=== PATIENT | male | born 1930 | race Caucasian/White ===

== ENCOUNTER 2019-01-01 09:29 | Inpatient (IN) ==
--- NOTE | 2018-12-23 14:13 | Anesthesiology Consultation ---
Date of Service December 23, 2018 Assessment & Plan Chart Review Chart Review: Pending: Refer to Additional Notes / Consult section and Patient NOT seen in Pre Admission Testing Consults Requested cardiac (please obtain copy of cardiac cath) ASA ASA4 Proposed Anesthesia Anesthesia Type: General Anesthesia Line Insertion: Arterial line History Surgery Operation Date: 01/01/19 11:50 Proposed Procedures p Robotic Right Video Assisted Thoracoscopy with Right Upper Love Wedge Resection, Possible Right Upper Lobectomy with Mediastinal Lymphadenectomy - Davion Hudson MD, FACS Height/Weight Height: 5 ft 11 in Weight: 89.358 kg Allergies Allergy/AdvReac Type Severity Reaction Status Date / Time No Known Allergies Allergy Verified 12/20/18 14:07 Medications Home Medications Medication Instructions Recorded Confirmed Last Taken amlodipine 2.5 mg tablet 2.5 mg PO QAM 11/27/18 12/20/18 Unknown atorvastatin 10 mg tablet 10 mg PO HS 11/27/18 12/20/18 Unknown cyanocobalamin (vitamin B-12) 1,000 mcg PO QPM 11/27/18 12/20/18 Unknown 1,000 mcg capsule folic acid 1 mg tablet 1 mg PO QPM 11/27/18 12/20/18 Unknown omeprazole 20 mg capsule,delayed 20 mg PO QAM 11/27/18 12/20/18 Unknown release apixaban [Eliquis] 5 mg PO BID 12/20/18 12/20/18 Unknown fluticasone propion-salmeterol 1 inh INHALATION BID 12/20/18 12/20/18 Unknown [Advair Diskus] hydrocodone-acetaminophen 1 tab PO Q6H PRN 12/20/18 12/20/18 Unknown lisinopril 10 mg PO QAM 12/20/18 12/20/18 Unknown magnesium 250 mg PO QPM 12/20/18 12/20/18 Unknown methotrexate sodium 20 mg PO WK 12/20/18 12/20/18 Unknown Past Medical History Medical History Arthritis COPD (chronic obstructive pulmonary disease) Carpal tunnel syndrome of right wrist Hearing deficit Hyperlipemia Hypertension Pacemaker HX BRADYCARDIA - 3-5 YR AGO - [facility] (PT NOT SURE) Poor historian Exercise / Class Metabolic Activity III < 4 Walking/Shop/Light housework Past Family History Family History Daughter Hypertension Past Surgical History Surgical History History of knee replacement (~2009) RIGHT AND LEFT Hx of cataract surgery BOTH EYES Past Anesthesia History No Hx of Anesthesia Complications and No Family Hx of Anesthesia Complications History of PONV No Hx of PONV and No Hx of Motion Sickness Social History Smoking Status: Former smoker Do You Dip or Chew Tobacco: No Smoking End Date: 27 YR Hx Alcohol Use: No Hx Substance Use: No Testing Laboratory Results WBC: 6.1 Hc.7 Hct: 42.1 PLATELETS: 186 SODIUM: 140 POTASSIUM: 4.0 CHLORIDE: 106 CO2: 23 BUN: 24 CREATININE: 1.1 GLUCOSE: 93 PT: PTT: INR: UA: TYPE AND SCREEN: Electrocardiogram Date: 12/16/18 Findings: + pertinent finding (atrial - paced rhythm at 70;w/ prolonged AV conductionw/occasional pvc's and pac's;RBBB) Echocardiogram Date: 02/17/11 EF: 55 LV Function: normal Valvular Disease: + no significant valvular disease mild elevation of right sided heart pressures Stress Test Date: 02/16/11 Type: nuclear Findings: + WNL Resting RWMA: + none Valvular Disease: no significant valvular disease
[~2019-01-01 09:29] MED LIST: LR 15ML/HR IV SCH
[2019-01-01 10:11] LABS: Basophils # (auto) 0.03 K/uL (0-0.2); Basophils % (auto) 0.4 %; Eosinophils # (auto) 0.08 K/uL (0-0.5); Eosinophils % (auto) 1.1 %; Hematocrit (blood only) 41.5 % (42-52); Hemoglobin 13.5 g/dL (14.0-18.0); Immature Granulocytes # (auto) 0.02 K/uL (0.00-0.02); Immature Granulocytes % (auto) 0.3 %; Lymphocytes # (auto) 0.74 K/uL (1.2-3.4); Lymphocytes % (auto) 9.8 %; Mean Corpuscular Hemoglobin 32.3 pg (25-34); Mean Corpuscular Volume 99.3 fL (80-100); Mean Platelet Volume 9.4 fL (7.4-10.4); Monocytes # (auto) 0.74 K/uL (0.11-0.59); Monocytes % (auto) 9.8 %; Neutrophils # (auto) 5.93 K/uL (1.4-6.5); Neutrophils % (auto) 78.6 %; Platelet Count 202 K/uL (130-400); RDW Standard Deviation 53.9 fL (36.4-46.3); Red Blood Count 4.18 M/uL (4.7-6.1); White Blood Count 7.54 K/uL (4.8-10.8)
[2019-01-01 10:27] LABS: BUN Creatinine Ratio 21.2 (10-20); Calcium 9.1 mg/dl (8.5-10.1); Creatinine Clr Calc Pharmacy 44.7 ml/min; Est GFR (African American) 60.2; Est GFR (Non-African American) 51.9; Potassium 3.6 mmol/L (3.5-5.1)
--- NOTE | 2019-01-01 10:33 | History & Physical Bridge Note ---
Date of Service January 01, 2019 History & Physical Bridge Note I have examined the patient, reviewed the History & Physical and in the interval since the performance of the History & Physical I have noted the following changes of clinical significance: no changes noted
[2019-01-01 10:39] LABS: Mean Corpuscular Hgb Conc 32.5 g/dL (32-36)
[2019-01-01] MEDS ORDERED: fentaNYL citrate 100 MCG/2 ML VIAL ONE ×2 (10:41→13:41)
[2019-01-01] MEDS ORDERED: BUPIVACAINE 0.5 % 5 MG/1 ML MPF 30ML VIAL ONE (10:50)
[2019-01-01] MEDS ORDERED: SODIUM CHLORIDE 0.9% PF 50 ML VIAL ONE (10:51)
[2019-01-01] MEDS ORDERED: BUPIVACAINE LIPOSOME 1.3% 266 MG/20 ML VIAL ONE (10:51)
[2019-01-01] MEDS ORDERED: ACETAMINOPHEN 1000 MG/100 ML IV IV ONE (10:58)
[2019-01-01] MEDS ORDERED: fentaNYL citrate 100 MCG/2 ML VIAL IV PRN (11:21)
[2019-01-01] MEDS ORDERED: ATROPINE SULFATE 0.1 MG/ML 10ML SYR IV PRN (11:21)
[2019-01-01] MEDS ORDERED: ePHEDrine sulfate 50 MG/ML AMP IV PRN (11:21)
[2019-01-01] MEDS ORDERED: ONDANSETRON INJ 2 MG/ML 2 ML VIAL IV PRN ×2 (11:21→17:27)
[2019-01-01] MEDS ORDERED: LIDOCAINE HCL 2% 2 ML VIAL/AMP(20MG/ML) INFIL ONE (12:06)
[2019-01-01] MEDS ORDERED: PROPOFOL IV EMULSION 10 MG/ML 20 ML VIAL IV ONE (12:06)
[2019-01-01] MEDS ORDERED: DEXAMETHASONE SOD INJ 4 MG/ML VIAL ONE (12:07)
[2019-01-01] MEDS ORDERED: ROCURONIUM BROMIDE 10 MG/ML 5 ML VIAL ONE (12:07)
[2019-01-01] MEDS ORDERED: ONDANSETRON INJ 2 MG/ML 2 ML VIAL ONE (12:07)
[2019-01-01] MEDS ORDERED: ePHEDrine sulfate 50 MG/ML SYR ONE (12:07)
[2019-01-01] MEDS ORDERED: SURGICEL ABSORB HEMOSTAT 2IN X 14IN TOP ONE (13:38)
--- NOTE | 2019-01-01 14:59 | Operative Report ---
PG Post Operative Report Pre & Post Diagnosis Operation Date: 01/01/19 11:40 Pre-Op Diagnosis: Right Lung Nodule Post-Op Diagnosis: Squamous cell carcinoma RUL I identified the patient and participated in the time-out.: Yes Procedure Operation Date: 01/01/19 11:40 Actual Procedures p Robotic Right Video Assisted Thoracoscopy with Right Upper Lobe Wedge Resection, Right Upper Lobectomy with Mediastinal Lymphadenectomy(Right) - Davion Hudson MD, FACS Surgeon Davion Hudson MD, FACS Electrical Transmission Engineer Cindy SCOTT Estimated Blood Loss 50 Findings Consistent with Post-Op Diagnosis Specimens Right upper lobe wedge X 2. Right upper lobe Lymph Nodes Drains 24 fr chest tube Anesthesia Type General Complications none Disposition Accompanied Patient To Recovery: No Disposition: Recovery Room Indications Hypermetabolic RUL nodule Description of Procedure This 88-year-old ex-smoker was found to have a mass in his right upper lobe which is hypermetabolic. He underwent a work-up and we felt he was a candidate for resection despite his advanced age. On 01/01/2019 patient brought the operating room and underwent a wedge resection of the right upper lobe mass. This turned out to be a squamous cell carcinoma. We proceeded with an uneventful right upper lobectomy with mediastinal lymphadenectomy. He tolerated it well was extubated in the room. Procedure: The patient was brought to the operating room and laid in the supine position. General anesthesia was induced and endotracheal intubation was performed with a double-lumen tube. Patient was placed in the left lateral decubitus position and his right chest was prepped and draped in the usual sterile fashion. After appropriate timeout of been called and prophylactic antibiotics given, a 5 mm port was placed in the eighth interspace just anterior to the midaxillary line. There were some adhesions to the right upper lobe but in general there well-developed fissures and very little in the way of adhesions. 8 mm ports were placed anterior-posterior in the same interspace and a 5 mm port was placed more posterior. 15 mm assistance port was placed just above the diaphragm anterior between the camera port in the anterior port although with several interspaces below. Camera port was switched over to a 12 mm port. Carbon dioxide was insufflated. The robot was docked. We took down the adhesions with cautery. We then grasped the right upper lobe apex and wedged this out using Endo MAVERICK stapler. Frozen section did not show evidence of a mass although I thought that I felt one. I then took more with Endo MAVERICK staplers. The mass was found this time and this was a squamous cell carcinoma on frozen read by Dr. Jamir Mccarty. While waiting for the frozen we have taken lymph nodes. Did not really see much in the level 8 or 9 area however there is a large packet of level 7 nodes which I removed. I then dissected out the level 11/23/2011 and the level 2 and 4. The we did this it exposed the the mediastinum quite nicely. We especially dissected out the right upper lobe bronchus. Frozen section came back as a ramus cell carcinoma would be fired an Endo MAVERICK stapler across the proximal right upper lobe bronchus. This opened up things quite nicely. We then retracted the lobe posteriorly and dissected off the anterior mediastinum. We were easily able to separate the artery from the vein here and divided the superior pulmonary vein just distal to the confluence with the middle lobe vein. This freed up the artery quite easily and we fired an Endo MAVERICK stapler across the A1 and 2 segments and then the A3 segment. We then completed the fissure anteriorly and posteriorly using Endo MAVERICK staplers. A Endobag was used to remove the lobe. We closed the patient but noted air leak with a bit larger than we would have liked. We inspected our staple lines and the bronchus really did not see any air leak however there was a defect noted in the lower lobe and we stapled this off. Air leak was greatly decreased. Beginning the case we mixed 266 mg of liposomal bupivacaine and 20 cc of solution with 30 cc of 0.5% bupivicaine and 250 cc of normal saline. We then injected into each of the port sites before making the incision. We also performed an intrathoracic intercostal block from the second to the 11th rib with the solution. Frozen section came back as being negative for carcinoma of the bronchial margin a 24 Kazakh chest tube was placed to 1 of the ports were towards the apex and sutured in place heavy silk suture. The assistance port had to be opened a bit in order to remove the Endobag in the low. This was closed with 0 Vicryl in running continuous fashion for the muscle layers. The larger camera port was also closed with 0 Vicryl in a [id number] fashion for the muscle layers. 4 Monocryl was used in running septic fashion approximate the wound edges. Patient tolerated the procedure quite well was extubated in the room with negligible blood loss. Transported to the postprocedure care unit in stable condition. I attest to the content of the Intraoperative Record and any orders documented therein. Any exceptions are noted below.
[2019-01-01] MEDS ORDERED: METOCLOPRAMIDE HCL INJ 5 MG/ML 2 ML VIAL IV ONE (15:25)
--- NOTE | 2019-01-01 15:48 | XRay Report ---
SINGLE VIEW CHEST CLINICAL HISTORY: Status post right upper lobe resection FINDINGS: An AP, portable, upright chest radiograph is correlated with chest CT dated 01/28/2018. The examination is degraded by portable technique and patient rotation. A 3-lead cardiac pacemaker is un changed in position and partially obscures the left upper chest. The heart is enlarged noting atheros clerotic calcification of the thoracic aorta. The pulmonary vasculature is noncongested. Emphysema an d chronic interstitial thickening is similar to previous. There is postoperative change and volume lo ss consistent with right upper lobe resection. A chest tube projects over the right mid chest. There is a large right pneumothorax. Trace pleural fluid is seen at the right lung base. Platelike atelecta sis is noted at the left lung base. The skeletal structures are osteopenic. The bony thorax is grossl y intact. Subcutaneous emphysema is noted along the right chest wall and in the right lower neck. IMPRESSION: 1. Emphysema and postoperative change from right upper lobe resection. 2. A right-sided chest tube is in place and there is a large right pneumothorax. 3. Cardiomegaly and cardiac pacemaker without radiographic evidence of congestive failure. 4. Left lung appears clear. Electronically signed by: Arvin Salazar M.D. 01/01/2019 3:47 PM
--- NOTE | 2019-01-01 16:33 | Anesthesiology Progress Note ---
Date of Service January 01, 2019 Anesthesia Post Procedure Vital Signs Vital Signs: Temp Pulse Pulse Resp BP Pulse Ox 01/01/19 16:25 63 17 142/85 H 100 01/01/19 16:15 62 16 149/87 H 98 01/01/19 16:05 63 16 159/91 H 99 01/01/19 15:55 61 17 151/92 H 100 01/01/19 15:45 60 15 152/88 H 100 01/01/19 15:35 60 17 157/84 H 100 01/01/19 15:25 36.0 C L 60 18 155/85 H 100 01/01/19 10:18 36.6 C 63 20 153/96 H 97 01/01/19 09:45 36.6 C Pain Intensity Left Chest: Pain Intensity: 0 Transfer of Care Handoff Completed per policy Notes Mental Status: alert / awake / arousable Patient Amnestic to Procedure: Yes Nausea / Vomiting: adequately controlled Pain: adequately controlled Airway Patency, RR, SpO2: stable & adequate BP & HR: stable & adequate Hydration State: stable & adequate Anesthetic Complications: no major complications apparent
[2019-01-01] MEDS: D5W AND 1/2NSS 1,000 ML IV SCH (17:48)
[2019-01-01] MEDS: METOCLOPRAMIDE HCL INJ 5 MG/ML 2 ML VIAL IV SCH (18:33)
[2019-01-01] MEDS: ACETAMINOPHEN 1,000 MG/100 ML VIAL IV SCH (18:33)
[2019-01-01] MEDS: OXYCODONE HCL IR 5 MG TAB (IMMEDIATE RELEASE) PO PRN (19:39)
[2019-01-01] MEDS: MoRPHine SULFATE 2 MG/ML CARP IV PRN (20:55)
[2019-01-01] MEDS: MAGNESIUM OXIDE 400 MG TAB PO SCH (20:56)
[2019-01-01] MEDS: ATORVASTATIN 10 MG TAB PO SCH (20:56)
[2019-01-01] MEDS: DOCUSATE SODIUM 100 MG CAP PO SCH (20:56)
[2019-01-01] MEDS: FLUTICASONE/SALMETEROL 250/50 (ADVAIR) 14 PUFF/1 INHALER INH SCH (21:02)
[2019-01-02] MEDS: ACETAMINOPHEN 1,000 MG/100 ML VIAL IV SCH ×2 (01:40→10:50)
[2019-01-02] MEDS: METOCLOPRAMIDE HCL INJ 5 MG/ML 2 ML VIAL IV SCH ×2 (01:41→10:45)
[2019-01-02] MEDS: D5W AND 1/2NSS 1,000 ML IV SCH (03:57)
[2019-01-02] MEDS: OXYCODONE HCL IR 5 MG TAB (IMMEDIATE RELEASE) PO PRN ×2 (05:18→13:45)
[2019-01-02] MEDS ORDERED: CLINDAMYCIN PHOS 900 MG/6 ML VIAL IV SCH (06:00)
[2019-01-02 06:14] LABS: Hematocrit (blood only) 37.9 % (42-52); Hemoglobin 12.6 g/dL (14.0-18.0); Immature Granulocytes # (auto) 0.03 K/uL (0.00-0.02); Immature Granulocytes % (auto) 0.2 %; Lymphocytes % (auto) 4.4 %; Mean Corpuscular Hgb Conc 33.2 g/dL (32-36); Mean Corpuscular Volume 99.2 fL (80-100); Monocytes # (auto) 1.08 K/uL (0.11-0.59); Monocytes % (auto) 7.9 %; Neutrophils # (auto) 11.94 K/uL (1.4-6.5); Neutrophils % (auto) 87.5 %; Platelet Count 179 K/uL (130-400); RDW Coefficient of Variation 14.9 % (11.5-14.5); RDW Standard Deviation 53.1 fL (36.4-46.3); Red Blood Count 3.82 M/uL (4.7-6.1); White Blood Count 13.65 K/uL (4.8-10.8)
[2019-01-02 06:32] LABS: BUN Creatinine Ratio 18.8 (10-20); Calcium 8.1 mg/dl (8.5-10.1); Est GFR (African American) 51.1; Est GFR (Non-African American) 44.1; Potassium 4.1 mmol/L (3.5-5.1)
--- NOTE | 2019-01-02 07:56 | XRay Report ---
XR chest 1V portable HISTORY: Postop. Right upper lobectomy. COMPARISON: Chest 01/01/2019. FINDINGS: Decrease in size in the moderate to large right pneumothorax. This demonstrates a maximal a pical pleural gap of 6 cm. Right-sided chest tube terminates in the right mid hemithorax. This is not significant change in position. The left lung is clear. The heart is mildly enlarged. Left-sided pac emaker is noted. Small amount of right chest wall subcutaneous emphysema. IMPRESSION: 1. Slight decrease in size in the moderate to large right pneumothorax. 2. Right-sided chest tube remains in place. Electronically signed by: J Luis Michaud M.D. 01/02/2019 7:55 AM
[2019-01-02] MEDS ORDERED: ENOXAPARIN INJ 40 MG/0.4 ML SYR SQ SCH (09:00)
[2019-01-02] MEDS: FLUTICASONE/SALMETEROL 250/50 (ADVAIR) 14 PUFF/1 INHALER INH SCH ×2 (09:36→21:16)
[2019-01-02] MEDS: AMLODIPINE BESYLATE 5 MG TAB PO SCH (09:37)
[2019-01-02] MEDS: PANTOprazole 40 MG TAB PO SCH (09:37)
[2019-01-02] MEDS: LISINOPRIL 10 MG TAB PO SCH (09:37)
[2019-01-02] MEDS: DOCUSATE SODIUM 100 MG CAP PO SCH ×2 (09:40→21:17)
--- NOTE | 2019-01-02 10:59 | Anesthesiology Progress Note ---
Date of Service January 02, 2019 Anesthesia Post Procedure Vital Signs Vital Signs: Temp Pulse Pulse Resp BP BP Pulse Ox 01/02/19 07:41 36.7 C 60 18 139/83 95 01/02/19 06:37 91 01/02/19 04:20 36.5 C 61 18 128/77 94 01/02/19 02:27 36.4 C L 59 L 18 121/74 95 01/02/19 00:27 01/02/19 00:25 36.4 C L 60 18 125/75 94 01/02/19 00:04 01/01/19 23:00 89 L 01/01/19 22:20 36.3 C L 60 16 110/72 99 01/01/19 20:27 36.3 C L 63 16 130/82 100 01/01/19 19:24 36.7 C 60 17 144/84 H 98 01/01/19 18:27 36.7 C 62 18 127/75 96 01/01/19 17:20 36.5 C 59 L 16 143/85 H 99 01/01/19 16:55 63 20 139/82 98 01/01/19 16:45 36.2 C L 66 16 141/86 H 99 01/01/19 16:35 62 17 146/89 H 98 01/01/19 16:25 63 17 142/85 H 100 01/01/19 16:15 62 16 149/87 H 98 01/01/19 16:05 63 16 159/91 H 99 01/01/19 15:55 61 17 151/92 H 100 01/01/19 15:45 60 15 152/88 H 100 01/01/19 15:35 60 17 157/84 H 100 01/01/19 15:25 36.0 C L 60 18 155/85 H 100 Pulse Ox 01/02/19 07:41 01/02/19 06:37 01/02/19 04:20 01/02/19 02:27 94 01/02/19 00:27 93 01/02/19 00:25 01/02/19 00:04 91 01/01/19 23:00 01/01/19 22:20 01/01/19 20:27 01/01/19 19:24 01/01/19 18:27 96 01/01/19 17:20 01/01/19 16:55 01/01/19 16:45 01/01/19 16:35 01/01/19 16:25 01/01/19 16:15 01/01/19 16:05 01/01/19 15:55 01/01/19 15:45 01/01/19 15:35 01/01/19 15:25 Pain Intensity Left Chest: Pain Intensity: 0 Notes Mental Status: alert / awake / arousable and participated in evaluation Nausea / Vomiting: adequately controlled Pain: adequately controlled Airway Patency, RR, SpO2: stable & adequate BP & HR: stable & adequate Hydration State: stable & adequate Anesthetic Complications: no major complications apparent
[2019-01-02] MEDS ORDERED: TAMSULOSIN HCL 0.4 MG CAP PO STA (12:26)
--- NOTE | 2019-01-02 15:51 | Surgery Progress Note ---
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 Not pleased with the Aerolate but it is small enough that I think it will stop. His right lung should continue to expand. He is ambulating in the hallway on room air. He really looks good. This appears to be an early stage squamous cell carcinoma of the right upper lobe with clean resection margins. Present on Admission?: No Subjective Mr. Yo sitting up having just finished his breakfast. He is on room air. He is ambulating in the hallway. Complaining of some discomfort with the chest tube. He said some serous drainage but still has an air leak which is mild to moderate. Otherwise he looks great. He sounds good auscultation. Chest x-ray shows a decrease in the right-sided pneumothorax. He can better aeration of his right lung base. Results & Data Vital Signs (Past 12 Hours) Vital Signs Temp Pulse Resp BP BP Pulse Ox 01/02/19 15:20 36.4 C L 63 18 131/73 95 01/02/19 11:08 36.3 C L 58 L 16 111/68 95 01/02/19 07:41 36.7 C 60 18 139/83 95 01/02/19 06:37 91 01/02/19 04:20 36.5 C 61 18 128/77 94 PG Care Time/CCT Total # of Minutes Spent Total Time Spent with Patient: Total time spent is greater than 50% in coordination of care (as documented) at patient's floor/unit and/or counseling patient:
[2019-01-02] MEDS: MoRPHine SULFATE 2 MG/ML CARP IV PRN (17:21)
[2019-01-02] MEDS: ACETAMINOPHEN 325 MG TAB PO SCH ×2 (17:53→23:27)
[2019-01-02] MEDS ORDERED: AMIODARONE IV BOLUS / DRIP IV STA (20:14)
[2019-01-02] MEDS ORDERED: AMIODARONE / D5W 150 MG/100 ML BAG IV ONE (20:30)
[2019-01-02] MEDS ORDERED: AMIODARONE / D5W 360 MG/200 ML BAG IV SCH (20:40)
[2019-01-02] MEDS: ATORVASTATIN 10 MG TAB PO SCH (21:17)
[2019-01-02] MEDS: MAGNESIUM OXIDE 400 MG TAB PO SCH (21:17)
[2019-01-02] MEDS: APIXABAN 5 MG TABLET PO SCH (22:16)
[2019-01-02] MEDS: TAMSULOSIN HCL 0.4 MG CAP PO SCH (22:39)
[2019-01-03] MEDS ORDERED: AMIODARONE / D5W 360 MG/200 ML BAG IV SCH (02:40)
[2019-01-03] MEDS: OXYCODONE HCL IR 5 MG TAB (IMMEDIATE RELEASE) PO PRN ×2 (04:53→19:49)
[2019-01-03] MEDS: ACETAMINOPHEN 325 MG TAB PO SCH ×3 (05:03→17:18)
--- NOTE | 2019-01-03 07:08 | XRay Report ---
XR chest 1V portable CLINICAL HISTORY: lung resection postoperative COMPARISON STUDY: 01/02/2019 FINDINGS: Diminished in volume of a right sided pneumothorax. Pleural separation is diminished to les s than 1 cm. Right basilar drainage catheter is similar. There is a trace pleural fluid right lateral costophrenic angle. Subcutaneous emphysematous changes are stable. Left lung remains clear. IMPRESSION: Improved postoperative change right hemithorax with no significant residual pneumothorax at the current time. The above report was generated using voice recognition software. It may contain grammatical, syntax or spelling errors. Electronically signed by: Paddy Alvarze M.D. 01/03/2019 7:06 AM
[2019-01-03] MEDS: FLUTICASONE/SALMETEROL 250/50 (ADVAIR) 14 PUFF/1 INHALER INH SCH ×2 (08:12→19:42)
[2019-01-03] MEDS: PANTOprazole 40 MG TAB PO SCH (08:13)
[2019-01-03] MEDS: DOCUSATE SODIUM 100 MG CAP PO SCH ×2 (08:13→19:46)
[2019-01-03] MEDS: APIXABAN 5 MG TABLET PO SCH ×2 (08:13→19:44)
[2019-01-03] MEDS: AMLODIPINE BESYLATE 5 MG TAB PO SCH (10:33)
[2019-01-03] MEDS: LISINOPRIL 10 MG TAB PO SCH (10:33)
--- NOTE | 2019-01-03 12:07 | Surgery Progress Note ---
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 is s/p RUL on 01/01/19 -CXR today shows previously noted pneumothorax has resolved -CT has noted air leak and due to drainage (1700 cc last shift) will remain in place -encourage coughing, deep breathing, use of IS -ambulation has been encouraged (2) Atrial fibrillation and flutter: -this was noted last night -pt. noted to have hypotension, but is otherwise asymptomatic -amiodarone bolus given and drip started on 01/02/19 -he remains in afib with RVR -he is anticoagulated with Eliquis -cardiology consulted: -case discussed with Dr. Lowe -awaiting recommendations Subjective Pt. state he feels well. He specifically denies CP or SOB. No palpitations. He notes that when he first gets OOB he has some slight lightheadedness but this resolved within a few minutes. He is tolerating oral intake without N/V. Denies difficulty voiding. He has ambulated in hallway. Discussed withh RN--main issue is a-fib with RVR, but otherwise pt. doing well. Physical Exam Constitutional: well developed and well nourished; no acute distress ENMT: Ears: + hearing impairment (need to speak to pt. in loud voice for him to hear) Neck: trachea midline Respiratory: normal respiratory effort; no respiratory distress and no labored breathing BS with slight decrease at right base Cardiovascular: Rate/Rhythm: + tachycardic and + irregularly irregular Gastrointestinal (Abdomen): Percussion/Palpation: abdomen soft; abdomen nontender Musculoskeletal: no calf tenderness Neurologic: -pt. follows commands; he moves all extremities without noted focal deficits Results & Data Vital Signs (Past 12 Hours) Vital Signs Temp Pulse Pulse Resp BP BP Pulse Ox 01/03/19 11:10 36.5 C 119 H 18 113/70 95 01/03/19 07:37 36.6 C 115 H 18 82/57 L 92 01/03/19 03:10 36.2 C L 95 H 18 86/56 L 94 PG Care Time/CCT Total # of Minutes Spent Total Time Spent with Patient: Total time spent is greater than 50% in coordination of care (as documented) at patient's floor/unit and/or counseling patient:
--- NOTE | 2019-01-03 13:54 | Cardiology Consultation ---
Date of Consultation January 03, 2019 Assessment & Plan (1) Atrial fibrillation and flutter: Although I do not have much in way of records I believe he has had a long history of atrial fibrillation and that is why he was on anticoagulation, which he should be. He does not appear to be on any AV carlito blocking medications, perhaps that is an error in our medication list since he does not really know his medications. We do not have to worry about bradycardia since he has a pacemaker. He has been on amiodarone now since yesterday and that has done little for heart rate and has not converted his rhythm. I am going to discontinue the amiodarone and start AV carlito blocking medications . I am going to start with intravenous medications to make sure we can get heart rate control but I am also going to add oral agents. Since I do not know what he is on at home I am going to use diltiazem and beta-blockade. (2) Pacemaker: He has a pacemaker in place, I do not know what that device is. We could probably find out if we need to interrogate it but there is no reason to think it is not working therefore I am not going to pursue it at the moment unless there is an issue with the device. (3) Anticoagulant long-term use: He should be on an anticoagulant for his atrial fibrillation, I assume that he is on Eliquis for that not for some other reason. In any case he is back on it and it should be effective for stroke prevention for his arrhythmia. History of Present Illness Reason for Consultation: Atrial fibrillation with rapid ventricular response Attending Physician: Davion Hudson MD, FACS History of Present Illness This is an 88-year-old male who [place] 100 miles from here and is here for a right lung procedure done yesterday. He was observed to be in atrial fibrillation with a rapid heart rate. We do not have records regarding his arrhythmia that I have seen, and he knows very little about it. He does have a pacemaker in place, he also takes Eliquis which he thinks he has been taking for about a year but he does not know why. He did not really recognize the name atrial fibrillation but that is probably why he was on it. I suspect therefore that he had some form of tachybradycardia syndrome and therefore has a pacemaker and probably had atrial fibrillation in the past. Here he is not on any AV carlito blocking medications. He was started on intravenous amiodarone but that has done little to control the heart rate and he remains in atrial fibrillation. He is back on Eliquis postoperatively (he held it for several days preoperatively). He seems unaware of the rhythm, he does not feel it even though the rate is somewhat fast (around 120). Overall he feels fairly well and he is sitting in a chair next to his bed. Allergies Allergy/AdvReac Type Severity Reaction Status Date / Time No Known Allergies Allergy Verified 12/20/18 14:07 Home Medications Home Medications Medication Instructions Recorded Confirmed Type amlodipine 2.5 mg tablet 2.5 mg PO QAM 11/27/18 01/01/19 History atorvastatin 10 mg tablet 10 mg PO HS 11/27/18 01/01/19 History cyanocobalamin (vitamin B-12) 1,000 mcg PO QPM 11/27/18 01/01/19 History 1,000 mcg capsule folic acid 1 mg tablet 1 mg PO QPM 11/27/18 01/01/19 History omeprazole 20 mg capsule,delayed 20 mg PO QAM 11/27/18 12/20/18 History release apixaban [Eliquis] 5 mg PO BID 12/20/18 01/01/19 History fluticasone propion-salmeterol 1 inh INHALATION BID 12/20/18 01/01/19 History [Advair Diskus] lisinopril 10 mg PO QAM 12/20/18 01/01/19 History magnesium 250 mg PO QPM 12/20/18 12/20/18 History methotrexate sodium 20 mg PO WK 12/20/18 12/20/18 History Patient History Medical History Arthritis Carpal tunnel syndrome of right wrist COPD (chronic obstructive pulmonary disease) Hearing deficit Hyperlipemia Hypertension Pacemaker HX BRADYCARDIA - 3-5 YR AGO - [facility] (PT NOT SURE) Poor historian Surgical History History of knee replacement (~2009) RIGHT AND LEFT Hx of cataract surgery BOTH EYES Family History Daughter Hypertension Social History Preferred Language: Turkmen Communication Ability: Effective Hearing Ability: Hard of Hearing Beliefs That Will Affect Care: None marital status: / Current Living Situation: Alone current occupational status: retired Feels Safe at Home: Yes Smoking Status: Former smoker Do You Dip or Chew Tobacco: No ; Smoking End Date: 27 YR ; Number of Years Since Quit: 27 ; Second Hand Exposure: No ; Hx Alcohol Use: No Hx Substance Use: No Review of Systems Review of Systems: All systems reviewed & are unremarkable except as noted in HPI & below Results & Data Vital Signs (Past 12 Hours) Vital Signs Temp Pulse Pulse Resp BP BP Pulse Ox 01/03/19 11:10 36.5 C 119 H 18 113/70 95 01/03/19 07:37 36.6 C 115 H 18 82/57 L 92 01/03/19 03:10 36.2 C L 95 H 18 86/56 L 94 Diagnostic Findings An electrocardiogram done yesterday demonstrates atrial fibrillation at a rate of 130 bpm, a right bundle branch block pattern. Telemetry: Atrial fibrillation since yesterday, heart rate typically 120, as high as 150 for brief times. PG Care Time/CCT Total # of Minutes Spent Total Time Spent with Patient: Total time spent is greater than 50% in coordination of care (as documented) at patient's floor/unit and/or counseling patient:
[2019-01-03] MEDS ORDERED: dilTIAZem HCl 5 MG/ML 5 ML VIAL IV STA (14:04)
[2019-01-03] MEDS ORDERED: METOPROLOL TARTRATE 1 MG/ML VIAL IV STA (14:05)
[2019-01-03] MEDS: TAMSULOSIN HCL 0.4 MG CAP PO SCH (19:44)
[2019-01-03] MEDS: METOPROLOL TARTRATE 25 MG TAB PO SCH (19:44)
[2019-01-03] MEDS: ATORVASTATIN 10 MG TAB PO SCH (19:45)
[2019-01-03] MEDS: MAGNESIUM OXIDE 400 MG TAB PO SCH (19:45)
[2019-01-04] MEDS: ACETAMINOPHEN 325 MG TAB PO SCH ×5 (01:02→23:14)
[2019-01-04 06:49] LABS: Creatinine Clr Calc Pharmacy 18.7 ml/min; Est GFR (Non-African American) 18.1
--- NOTE | 2019-01-04 06:56 | XRay Report ---
SINGLE VIEW CHEST CLINICAL HISTORY: Status post right upper lobe resection. Pneumothorax. FINDINGS: An AP, portable, upright chest radiograph is compared to study dated 01/03/2019 and correla tae with chest CT dated 01/28/2018. The examination is degraded by portable technique and patient rot ation. A 3-lead cardiac pacemaker is unchanged in position and partially obscures the left upper ches t. The heart is enlarged noting atherosclerotic calcification of the thoracic aorta. The pulmonary va sculature is noncongested. Emphysema and chronic interstitial thickening is similar to previous. Ther e is postoperative change and volume loss consistent with right upper lobe resection. A right-sided c hest tube is unchanged in position. There is a small residual right apical pneumothorax. Trace pleura l fluid is seen at the right lung base. The skeletal structures are osteopenic. The bony thorax is gr ossly intact. Subcutaneous emphysema is noted along the right chest wall and in the right lower neck. IMPRESSION: 1. Emphysema and postoperative change from right upper lobe resection. 2. A right-sided chest tube is in place and there is a small persistent right apical pneumothorax. 3. Cardiomegaly and cardiac pacemaker without radiographic evidence of congestive failure. 4. The left lung appears clear. Electronically signed by: Arvin Salazar M.D. 01/04/2019 6:54 AM
[2019-01-04] MEDS: LISINOPRIL 10 MG TAB PO SCH (07:35)
[2019-01-04 08:05] LABS: Basophils # (auto) 0.01 K/uL (0-0.2); Basophils % (auto) 0.1 %; Eosinophils # (auto) 0.04 K/uL (0-0.5); Eosinophils % (auto) 0.2 %; Hematocrit (blood only) 37.5 % (42-52); Hemoglobin 12.5 g/dL (14.0-18.0); Immature Granulocytes # (auto) 0.08 K/uL (0.00-0.02); Immature Granulocytes % (auto) 0.4 %; Lymphocytes # (auto) 0.56 K/uL (1.2-3.4); Lymphocytes % (auto) 3.1 %; Mean Corpuscular Hemoglobin 32.6 pg (25-34); Mean Corpuscular Volume 97.9 fL (80-100); Mean Platelet Volume 9.4 fL (7.4-10.4); Monocytes # (auto) 1.87 K/uL (0.11-0.59); Monocytes % (auto) 10.4 %; Neutrophils # (auto) 15.43 K/uL (1.4-6.5); Neutrophils % (auto) 85.8 %; Platelet Count 165 K/uL (130-400); RDW Coefficient of Variation 15.3 % (11.5-14.5); Red Blood Count 3.83 M/uL (4.7-6.1); White Blood Count 17.99 K/uL (4.8-10.8)
[2019-01-04] MEDS: FLUTICASONE/SALMETEROL 250/50 (ADVAIR) 14 PUFF/1 INHALER INH SCH ×2 (08:16→20:54)
[2019-01-04] MEDS: APIXABAN 5 MG TABLET PO SCH ×2 (08:17→20:55)
[2019-01-04] MEDS: PANTOprazole 40 MG TAB PO SCH (08:18)
[2019-01-04] MEDS: DOCUSATE SODIUM 100 MG CAP PO SCH ×2 (08:18→21:00)
[2019-01-04] MEDS: METOPROLOL TARTRATE 25 MG TAB PO SCH ×2 (08:18→20:56)
[2019-01-04 08:36] LABS: Mean Corpuscular Hgb Conc 33.3 g/dL (32-36)
[2019-01-04 08:38] LABS: BUN Creatinine Ratio 17.5 (10-20); Calcium 8.3 mg/dl (8.5-10.1); Est GFR (Non-African American) 17.3; Magnesium 2.4 mg/dl (1.8-2.4); Potassium 4.7 mmol/L (3.5-5.1)
--- NOTE | 2019-01-04 09:04 | Surgery Progress Note ---
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 is s/p RUL on 01/01/19 -CXR today shows small pneumothorax -CT has air leak and will remain in place -encourage coughing, deep breathing, use of IS -ambulation has again been encouraged (2) Atrial fibrillation and flutter: -pt. noted to have hypotension with af-fib, but otherwise remains asymptomatic -amiodarone bolus given and drip started on 01/02/19 -cardiology consulted: -amiodarone discontinued -cardizem [address] -lopressor [address] -pt. continues to have episodes of tachycardia -discussed with cardiology -will obtain 2-d echo (will also allow us to further assess volume status and treat JENNIFER) -he is anticoagulated with Eliquis (3) Acute kidney injury: -suspect due to hypotension while in rapid a-fib -pt. was taking GABBIE-I pre-op: -this was ordered post-op with holds for hypotension; pt. received dose on 01/02/19 but none since that time -this medicine has been placed on hold due to JENNIFER -meds reviewed and no other nephrotoxins noted -2-d echo ordered to help accurately assess volume status -will ask nephrology to see; discussed with Dr. Matthews -he has asked that we ordered UA with microscopy as well as renal US -will await nephrology input regarding need for pizano or IVF -follow serial labs Subjective Pt. state he feels "ok" No CP or SOB. No palpitations. Lightheadedness noted when he first sits up but this resolved within a few minutes. He is tolerating oral intake without N/V. Denies difficulty voiding. He has ambulates in hallway. Discussed with RN--main issue is a-fib with RVR at times, and elevated Cr this am. Physical Exam Constitutional: well developed and well nourished; no acute distress Neck: trachea midline Respiratory: normal respiratory effort; no respiratory distress and no labored breathing BS are decreased at bases R>L Cardiovascular: Rate/Rhythm: + irregularly irregular Gastrointestinal (Abdomen): Percussion/Palpation: abdomen soft Musculoskeletal: no calf tenderness, no edema Neurologic: follows commands and moves all extremities without noted focal deficits Results & Data Vital Signs (Past 12 Hours) Vital Signs Temp Pulse Pulse Resp BP BP Pulse Ox 01/04/19 07:31 36.7 C 55 L 24 122/81 96 01/04/19 03:02 37.3 C 63 26 H 121/70 96 01/03/19 23:37 36.7 C 62 16 101/65 95 PG Care Time/CCT Total # of Minutes Spent Total Time Spent with Patient: Total time spent is greater than 50% in coordination of care (as documented) at patient's floor/unit and/or counseling patient:
[2019-01-04] MEDS ORDERED: PERFLUTREN LIPID MICROSPHERE (DEFINITY) IV ONE (09:50)
--- NOTE | 2019-01-04 11:45 | Ultrasound Report ---
ULTRASOUND KIDNEYS AND BLADDER CLINICAL HISTORY: Acute renal insufficiency. COMPARISON STUDY: PET/CT dated 11/13/2018. TECHNIQUE: Real-time, grayscale, and color flow sonography of the kidneys and bladder is performed. I mages are reviewed in the transverse and longitudinal planes. Bandaging over the right abdomen and a right-sided chest tube degraded the examination. FINDINGS: Kidneys: The left kidney demonstrates cortical atrophy and is without hydronephrosis. The right kidne y was not visualized due to overlying bandaging material. The left kidney measures 11.1 cm in length. A 1.1 cm cyst is noted in left kidney. No shadowing left renal calculi are identified and there is n o sonographic evidence of contour deforming mass lesion. No perinephric fluid is identified. Bladder: The bladder wall appears thickened and trabeculated suggesting chronic outlet obstruction. U reteral jets were not seen. IMPRESSION: 1. The right kidney was not visualized due to overlying bandaging material. 2. The left kidney demonstrates cortical atrophy and is without hydronephrosis. 3. The appearance of the bladder suggests chronic outlet obstruction. Electronically signed by: Arvin Salazar M.D. 01/04/2019 11:44 AM
[2019-01-04 12:23] LABS: Appearance Urine Clear (Clear); Bacteria Urine Automated 1+ (Negative); Bilirubin Urine Negative (Negative); Blood Urine Negative (Negative); Color Urine Yellow; Glucose Urine UA Negative (Negative); Ketones Urine Negative (Negative); Leukocyte Esterase Urine Trace (Negative); Nitrite Urine Negative (Negative); Protein Urine Negative (Negative); Specific Gravity Urine 1.017 (1.000-1.030); Urobilinogen Urine Negative (Negative)
[2019-01-04 12:37] LABS: RBC Urine Automated 0-4 /hpf (0-4)
--- NOTE | 2019-01-04 13:42 | Nephrology Consultation ---
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: -- s/p RUL on 01/01/19 -- CXR today shows small pneumothorax -- CT has air leak (2) Atrial fibrillation and flutter: -- Cardiology following -- Amiodarone stopped -- Cardizem and lopressor with hold parameters -- Anticoagulated with Eliquis -- BP acceptable at this time -- TTE reviewed (3) Acute kidney injury: -- Clinically consistent with ATN due to hypotension -- Euvolemic on exam -- ACEi held -- Medications appropriate for kidney function -- Renal US reviewed -- Urine studies reviewed -- Check CPK with next labs -- Monitor metabolic profile daily -- Document I/O's -- Will bladder scan PRN and document PVR History of Present Illness Reason for Consultation: JENNIFER Requesting Physician: Jerad Orlando PA-C Attending Physician: Davion Hudson MD, [facility] History of Present Illness Fabio Yo is an 88-year-old male currently POD #1 s/p right upper lobectomy. Post operative course was complicated by atrial fibrillation with RVR. Fabio developed associated hypotension. Management included amiodarone and AV carlito blocking medications. Medical history is notable for SCC, COPD, hypertension, a history of tachybrady syndrome with pacemaker. Kidney function is normal at baseline. Creatinine was 1.2 mg/dL on admission. Creatinine won to >3 mg/dL today. Fabio is non-oliguric. Nephrology consultation was requested to assist in management of JENNIFER. Plan of care was discussed with Jerad Orlando PA-C. Fabio noted some pain from his chest tube but otherwise he felt well when I evaluated him earlier today. He is a somewhat poor historian. He denies any dyspnea. He denies fevers of chills. He denies chest pain. He denied any urinary complaints. UA was bland. Microscopy notable for a few WBCs, hyaline and granular casts. Renal US demonstrated a normal left kidney. The right kidney was obscured. There was no hydronephrosis. Allergies Allergy/AdvReac Type Severity Reaction Status Date / Time No Known Allergies Allergy Verified 12/20/18 14:07 Home Medications Home Medications Medication Instructions Recorded Confirmed Type amlodipine 2.5 mg tablet 2.5 mg PO QAM 11/27/18 01/01/19 History atorvastatin 10 mg tablet 10 mg PO HS 11/27/18 01/01/19 History cyanocobalamin (vitamin B-12) 1,000 mcg PO QPM 11/27/18 01/01/19 History 1,000 mcg capsule folic acid 1 mg tablet 1 mg PO QPM 11/27/18 01/01/19 History omeprazole 20 mg capsule,delayed 20 mg PO QAM 11/27/18 12/20/18 History release apixaban [Eliquis] 5 mg PO BID 12/20/18 01/01/19 History fluticasone propion-salmeterol 1 inh INHALATION BID 12/20/18 01/01/19 History [Advair Diskus] lisinopril 10 mg PO QAM 12/20/18 01/01/19 History magnesium 250 mg PO QPM 12/20/18 12/20/18 History methotrexate sodium 20 mg PO WK 12/20/18 12/20/18 History Patient History Medical History Arthritis Carpal tunnel syndrome of right wrist COPD (chronic obstructive pulmonary disease) Hearing deficit Hyperlipemia Hypertension Pacemaker HX BRADYCARDIA - 3-[address] [facility] (PT NOT SURE) Poor historian Surgical History History of knee replacement (~2009) RIGHT AND LEFT Hx of cataract surgery BOTH EYES Family History Daughter Hypertension Social History Preferred Language: Bulgarian Communication Ability: Effective Hearing Ability: Hard of Hearing Beliefs That Will Affect Care: None marital status: / Current Living Situation: Alone current occupational status: retired Feels Safe at Home: Yes Smoking Status: Former smoker Do You Dip or Chew Tobacco: No ; Smoking End Date: 27 YR ; Number of Years Since Quit: 27 ; Second Hand Exposure: No ; Hx Alcohol Use: No Hx Substance Use: No Physical Exam Constitutional: well developed and well nourished; no acute distress Eyes: + anicteric sclerae; no conjunctival abnormality ENMT: Mouth: + dentures (upper); no oral mucosal abnormality and oral mucous membranes not dry Neck: normal visual inspection and trachea midline Respiratory: normal respiratory effort; no respiratory distress and no labored breathing Auscultation: lungs clear to auscultation bilaterally Cardiovascular: Rate/Rhythm: + bradycardic Heart Sounds: normal S1 and normal S2; no murmur Extremities: no edema Gastrointestinal (Abdomen): Percussion/Palpation: abdomen soft; abdomen nontender Musculoskeletal: Extremities: no cyanosis and no clubbing Skin: normal turgor; no lesions Neurologic: Motor/Sensory: no tremor and no asterixis Psychiatric: Orientation: alert and oriented x 3 Results & Data Vital Signs (Past 12 Hours) Vital Signs Temp Pulse Pulse Resp BP BP Pulse Ox 01/04/19 10:49 36.6 C 58 L 26 H 106/65 98 01/04/19 07:31 36.7 C 55 L 24 122/81 96 01/04/19 03:02 37.3 C 63 26 H 121/70 96 Laboratory Results Laboratory Results - last 24 hr 01/03/19 01/04/19 01/04/19 20:52 05:39 07:47 WBC 17.99 H RBC 3.83 L Hgb 12.5 L Hct 37.5 L MCV 97.9 MCH 32.6 MCHC 33.3 RDW Std Deviation 54.0 H RDW Coeff of Lobito 15.3 H Plt Count 165 MPV 9.4 Immature Gran % (Auto) 0.4 Neut % (Auto) 85.8 Lymph % (Auto) 3.1 [place] % (Auto) 10.4 Eos % (Auto) 0.2 Baso % (Auto) 0.1 Immature Gran # (Auto) 0.08 H Neut # (Auto) 15.43 H Lymph # (Auto) 0.56 L [place] # (Auto) 1.87 H Eos # (Auto) 0.04 Baso # (Auto) 0.01 Sodium Potassium Chloride Carbon Dioxide Anion Gap BUN Creatinine 2.96 H D Est Cr Clr Drug Dosing 18.7 Est GFR ( Amer) 21.0 Est GFR (Non-Af Amer) 18.1 BUN/Creatinine Ratio Glucose POC Glucose 131 H Calcium Magnesium Urine Color Urine Appearance Urine pH Ur Specific [place] Urine Protein Urine Glucose (UA) Urine Ketones Urine Blood Urine Nitrite Urine Bilirubin Urine Urobilinogen Ur Leukocyte Esterase Urine WBC (Auto) Urine RBC (Auto) U Hyaline Cast (Auto) U Epithel Cells (Auto) Urine Bacteria (Auto) Granular Casts 01/04/19 01/04/19 07:47 12:10 WBC RBC Hgb Hct MCV MCH MCHC RDW Std Deviation RDW Coeff of [place] Plt Count MPV Immature Gran % (Auto) Neut % (Auto) Lymph % (Auto) [place] % (Auto) Eos % (Auto) Baso % (Auto) Immature Gran # (Auto) Neut # (Auto) Lymph # (Auto) [place] # (Auto) Eos # (Auto) Baso # (Auto) Sodium 132 L Potassium 4.7 Chloride 97 L Carbon Dioxide 28 Anion Gap 7.0 BUN 54 H Creatinine 3.08 H Est Cr Clr Drug Dosing 18.0 Est GFR ( Amer) 20.0 Est GFR (Non-Af Amer) 17.3 BUN/Creatinine Ratio 17.5 Glucose 124 H POC Glucose Calcium 8.3 L Magnesium 2.4 Urine Color Yellow Urine Appearance Clear Urine pH 5.0 Ur Specific [place] 1.017 Urine Protein Negative Urine Glucose (UA) Negative Urine Ketones Negative Urine Blood Negative Urine Nitrite Negative Urine Bilirubin Negative Urine Urobilinogen Negative Ur Leukocyte Esterase Trace H Urine WBC (Auto) 5-10 H Urine RBC (Auto) 0-4 U Hyaline Cast (Auto) 5-10 H U Epithel Cells (Auto) 10-20 H Urine Bacteria (Auto) 1+ H Granular Casts 1-5 H PG Care Time/CCT Total # of Minutes Spent Total Time Spent with Patient: Total time spent is greater than 50% in coordination of care (as documented) at patient's floor/unit and/or counseling patient:
--- NOTE | 2019-01-04 18:05 | Pulmonary Consultation ---
Date of Consultation 88-year-old white male who is been fairly active and a long-standing smoker having quit over 20 years ago was admitted by Dr. Hudson electively for robotic video-assisted thorascopic surgery. 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 Moved to this area 20 years ago from [place] and is under the care of Dr. Jonah Small/pulmonary medicine in [place]. Patient CT scan and subsequent PET scan showed a small hypermetabolic mass right upper lobe worrisome for a neoplasm. He underwent a robotic right video-assisted thoracoscopy with right upper lobe wedge resection, right upper lobectomy with mediastinal lymphadenectomy on 01/01/2019. He was found to be a squamous cell carcinoma . He has had a mild postoperative but persistent air leak immediately gotten out of bed and began ambulation. Yesterday 1700 cc of serosanguineous fluid was drained into the Thoraklex and the pneumothorax postoperatively had resolved. Course was complicated by atrial fibrillation with flutter and hypotension. He was started on IV amiodarone drip after receiving a bolus. He is also anti-coagulated with Eliquis. Been followed by Dr. Lowe in the hospital. Chest x-ray today showed small apical pneumothorax with persistent but minimal air leak. Amiodarone was discontinued and Cardizem 60 mg twice daily and Lopressor 25 mg p.o. twice daily was instituted. I was asked to see patient in consultation. LVEF is 60% with no regional wall motion abnormalities. Patient was felt to have suffered an acute kidney injury secondary to ATN but appeared euvolemic on exam and was seen by nephrology. O2 sat 94% on low-flow O2. 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 Chest x-ray clearly shows significant emphysema now the right upper lobe resection. A small persistent right apical pneumothorax is noted there is no sign of CHF. I suspect patient's COPD was moderately severe and the right upper lobe resection and persistent air leak made O2 supplementation necessary at this juncture. Would continue vigorous pulmonary toilet including aerosolized bronchodilator and mobilization and hopefully the air leak will cease and the chest tube can be removed. We will follow with you. History of Present Illness Attending Physician: Davion Hudson MD, FACS Allergies Allergy/AdvReac Type Severity Reaction Status Date / Time No Known Allergies Allergy Verified 12/20/18 14:07 Home Medications Home Medications Medication Instructions Recorded Confirmed Type amlodipine 2.5 mg tablet 2.5 mg PO QAM 11/27/18 01/01/19 History atorvastatin 10 mg tablet 10 mg PO HS 11/27/18 01/01/19 History cyanocobalamin (vitamin B-12) 1,000 mcg PO QPM 11/27/18 01/01/19 History 1,000 mcg capsule folic acid 1 mg tablet 1 mg PO QPM 11/27/18 01/01/19 History omeprazole 20 mg capsule,delayed 20 mg PO QAM 11/27/18 12/20/18 History release apixaban [Eliquis] 5 mg PO BID 12/20/18 01/01/19 History fluticasone propion-salmeterol 1 inh INHALATION BID 12/20/18 01/01/19 History [Advair Diskus] lisinopril 10 mg PO QAM 12/20/18 01/01/19 History magnesium 250 mg PO QPM 12/20/18 12/20/18 History methotrexate sodium 20 mg PO WK 12/20/18 12/20/18 History Patient History Medical History Arthritis Carpal tunnel syndrome of right wrist COPD (chronic obstructive pulmonary disease) Hearing deficit Hyperlipemia Hypertension Pacemaker HX BRADYCARDIA - 3-5 YR AGO - [facility] (PT NOT SURE) Poor historian Surgical History History of knee replacement (~2009) RIGHT AND LEFT Hx of cataract surgery BOTH EYES Family History Daughter Hypertension Social History Preferred Language: [place] Verdean Communication Ability: Effective Hearing Ability: Hard of Hearing Beliefs That Will Affect Care: None marital status: / Current Living Situation: Alone current occupational status: retired Feels Safe at Home: Yes Smoking Status: Former smoker Do You Dip or Chew Tobacco: No ; Smoking End Date: 27 YR ; Number of Years Since Quit: 27 ; Second Hand Exposure: No ; Hx Alcohol Use: No Hx Substance Use: No Review of Systems Constitutional: no problem reported Eyes: no problem reported Ear, Nose, Mouth, Throat: no problem reported Respiratory: no problem reported Cardiovascular: no problem reported Gastrointestinal: no problem reported Genitourinary: no problem reported Musculoskeletal: no problem reported Integumentary: no problem reported Neurologic: no problem reported Psychiatric: no problem reported Endocrine: no problem reported Hematologic / Lymphatic: no problem reported Allergy / Immunological: no problem reported Physical Exam Constitutional: well developed and well nourished; no acute distress Eyes: PERRL, conjunctivae normal, anicteric sclerae ENMT: external ear and nose normal, oropharynx normal Neck: trachea midline, no thyromegaly Respiratory: + hyperresonance to percussion and + prolonged expiratory phase Auscultation: + diminished lung sounds (Bilaterally/no palpable subcu crepitance) Cardiovascular: RRR, no murmur, no edema Palpation: normal PMI; no thrill Gastrointestinal (Abdomen): normal bowel sounds, soft, nontender, no hepatosplenomegaly Musculoskeletal: no cyanosis or clubbing, extremities motor strength 5/5 Gait: normal gait Skin: no rashes, warm and dry Neurologic: PERRL, EOMI, accommodation nl, no face palsy, no dysarthria Psychiatric: A+Ox3, euthymic affect Lymphatic: no cervical or axillary lymphadenopathy Results & Data Vital Signs (Past 12 Hours) Vital Signs Temp Pulse Pulse Resp BP BP Pulse Ox 01/04/19 15:22 36.5 C 60 19 113/69 94 01/04/19 10:49 36.6 C 58 L 26 H 106/65 98 01/04/19 07:31 36.7 C 55 L 24 122/81 96 PG Care Time/CCT Total # of Minutes Spent Total Time Spent with Patient: Total time spent is greater than 50% in coordination of care (as documented) at patient's floor/unit and/or counseling patient:
[2019-01-04] MEDS: ALBUTEROL 0.5% NEB SOLN 2.5 MG/0.5 ML VIAL NEB SCH (20:30)
[2019-01-04] MEDS: ATORVASTATIN 10 MG TAB PO SCH (20:55)
[2019-01-04] MEDS: TAMSULOSIN HCL 0.4 MG CAP PO SCH (20:56)
[2019-01-04] MEDS: MAGNESIUM OXIDE 400 MG TAB PO SCH (20:57)
[2019-01-05] MEDS: ALBUTEROL 0.5% NEB SOLN 2.5 MG/0.5 ML VIAL NEB SCH ×4 (01:10→19:32)
[2019-01-05] MEDS: ACETAMINOPHEN 325 MG TAB PO SCH ×3 (05:29→17:33)
[2019-01-05 06:03] LABS: Basophils # (auto) 0.01 K/uL (0-0.2); Basophils % (auto) 0.1 %; Eosinophils # (auto) 0.28 K/uL (0-0.5); Eosinophils % (auto) 2.1 %; Hematocrit (blood only) 34.6 % (42-52); Hemoglobin 11.6 g/dL (14.0-18.0); Immature Granulocytes # (auto) 0.05 K/uL (0.00-0.02); Immature Granulocytes % (auto) 0.4 %; Lymphocytes # (auto) 0.82 K/uL (1.2-3.4); Mean Corpuscular Hemoglobin 32.7 pg (25-34); Mean Corpuscular Volume 97.5 fL (80-100); Mean Platelet Volume 9.4 fL (7.4-10.4); Monocytes # (auto) 1.24 K/uL (0.11-0.59); Monocytes % (auto) 9.1 %; Neutrophils # (auto) 11.25 K/uL (1.4-6.5); Neutrophils % (auto) 82.3 %; Platelet Count 154 K/uL (130-400); RDW Coefficient of Variation 15.2 % (11.5-14.5); RDW Standard Deviation 53.2 fL (36.4-46.3); Red Blood Count 3.55 M/uL (4.7-6.1); White Blood Count 13.65 K/uL (4.8-10.8)
[2019-01-05 06:08] LABS: Mean Corpuscular Hgb Conc 33.5 g/dL (32-36)
[2019-01-05 06:18] LABS: BUN Creatinine Ratio 30.6 (10-20); Calcium 8.2 mg/dl (8.5-10.1); Creatinine Clr Calc Pharmacy 28.6 ml/min; Est GFR (African American) 31.5; Est GFR (Non-African American) 27.2; Potassium 4.6 mmol/L (3.5-5.1)
--- NOTE | 2019-01-05 07:00 | XRay Report ---
XR chest 1V portable CLINICAL HISTORY: lobectomy on right postoperative evaluation COMPARISON STUDY: 01/04/2019 FINDINGS: Right-sided chest tube unchanged in position. Small residual right apical pneumothorax. Max imum pleural separation is 1.5 cm. Expected postoperative changes right base. Stable subcutaneous emphysematous change. Left lung is dinah ar. IMPRESSION: 1. Stable postoperative change. 2. Small residual right apical pneumothorax. The above report was generated using voice recognition software. It may contain grammatical, syntax or spelling errors. Electronically signed by: Paddy Alvarez M.D. 01/05/2019 6:58 AM
--- NOTE | 2019-01-05 07:12 | Surgery Progress Note ---
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 is s/p RUL on 01/01/19 -CXR again shows small apical pneumothorax -CT has air leak and therefore will remain in place -encourage coughing, deep breathing, use of IS -ambulation has again been encouraged: -RN notes pt. has been ambulating in hallway (2) Atrial fibrillation and flutter: -pt. noted to have hypotension while in rapid a-fib, but otherwise noted to be asymptomatic -amiodarone bolus given and drip started on 01/02/19 -cardiology consulted: -amiodarone discontinued -cardizem [address] -lopressor [address] -cardiology following: -2-d echo on 01/04/19 showed good LV function (60%EF), no , normal, no MR RA pressures -he is anticoagulated with Eliquis (3) Acute kidney injury: -suspect due to hypotension while in rapid a-fib -pt. was taking GABBIE-I pre-op: -this was ordered post-op with holds for hypotension; pt. received dose on 01/02/19 but none since that time -this medicine has been placed on hold due to JENNIFER (will not resume until renal function has improved further) -meds reviewed and no other nephrotoxins noted -2-d echo ordered to help accurately assess volume status (see notation above) -discussed with Dr. Matthews: -he feels this is likely due to ATN due to hypotension and should resolved without additional interventions -serial labs show improvement in renal function today: -will continue to follow serial labs (4) Urinary retention: -RN notes that pt. able to void 100-200 cc at a time, but having PVR of about 400 cc requiring straight cath -he is receiving flomax -will ask urology to see Subjective Pt. notes he had a good night. He denies SOB, N/V or abdominal pain. No CP. Discussed with RN and he notes pt. having high PVR after voiding. Physical Exam Constitutional: well developed and well nourished; no acute distress Neck: trachea midline Respiratory: normal respiratory effort; no respiratory distress and no labored breathing slight decrease of BS at righ base Cardiovascular: Rate/Rhythm: regular rate and regular rhythm Musculoskeletal: no calf tenderness Results & Data Vital Signs (Past 12 Hours) Vital Signs Temp Pulse Pulse Resp BP Pulse Ox Pulse Ox 01/05/19 04:00 91 01/05/19 03:11 36.5 C 61 18 119/57 L 91 01/05/19 01:10 63 16 94 01/05/19 00:00 90 01/04/19 22:56 36.4 C L 70 16 102/58 L 90 01/04/19 20:30 59 L 16 96 01/04/19 20:00 93 01/04/19 19:09 36.8 C 67 20 124/68 93 PG Care Time/CCT Total # of Minutes Spent Total Time Spent with Patient: Total time spent is greater than 50% in coordination of care (as documented) at patient's floor/unit and/or counseling patient:
[2019-01-05] MEDS: FLUTICASONE/SALMETEROL 250/50 (ADVAIR) 14 PUFF/1 INHALER INH SCH ×2 (08:42→21:09)
[2019-01-05] MEDS: APIXABAN 5 MG TABLET PO SCH ×2 (08:44→21:15)
[2019-01-05] MEDS: DOCUSATE SODIUM 100 MG CAP PO SCH ×2 (08:44→21:17)
[2019-01-05] MEDS: METOPROLOL TARTRATE 25 MG TAB PO SCH ×2 (08:45→21:15)
[2019-01-05] MEDS: PANTOprazole 40 MG TAB PO SCH (08:45)
--- NOTE | 2019-01-05 11:27 | Urology Consultation ---
Date of Consultation January 05, 2019 Assessment & Plan (1) BPH loc w urin obs/LUTS: A/P 88-year-old male postoperative day #4 status post lobectomy with obstructive voiding. Findings reviewed with patient. Continue tamsulosin. We will add finasteride to his current regimen but this would not be expected to have any acute improvement. We will also check a baseline PSA are as none are present within the chart. It is understood that this may be somewhat elevated due to recent catheterizations. Should the patient require repeat catheterization would simply place a Bah and allow for a week of bladder rest. Can arrange for outpatient trial of void if this is the case. This is reviewed with the patient's nursing staff. Continue to monitor PVR and voiding. Patient vocalizes good understanding of the treatment plan and urologic issues. I would expect that chronic medication would help improve his baseline symptoms as well. Thank you for allowing us to participate in this patient's care. Please contact our service with any questions or concerns. (2) Urinary retention: History of Present Illness Reason for Consultation: Incomplete bladder emptying and difficulty voiding. 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 He is recovering and has been noted to have some difficulties with his urinary voiding despite the initiation of therapy with tamsulosin. Per nursing staff patient voids in approximately 100 cc aliquots at night with a postvoid residual in the range of 400 700 cc. During the day he seems to void at higher volumes. Patient notes a long- standing history of nocturia and issues with a relatively slow stream. He denies previous urologic evaluation or intervention. He currently feels his voiding issues are relatively mild but has required clean intermittent catheterization on a couple of occasions to improve his bladder emptying. Urologic consultation is sought out to assist with the patient's acute care. Allergies Allergy/AdvReac Type Severity Reaction Status Date / Time No Known Allergies Allergy Verified 12/20/18 14:07 Home Medications Home Medications Medication Instructions Recorded Confirmed Type amlodipine 2.5 mg tablet 2.5 mg PO QAM 11/27/18 01/01/19 History atorvastatin 10 mg tablet 10 mg PO HS 11/27/18 01/01/19 History cyanocobalamin (vitamin B-12) 1,000 mcg PO QPM 11/27/18 01/01/19 History 1,000 mcg capsule folic acid 1 mg tablet 1 mg PO QPM 11/27/18 01/01/19 History omeprazole 20 mg capsule,delayed 20 mg PO QAM 11/27/18 12/20/18 History release apixaban [Eliquis] 5 mg PO BID 12/20/18 01/01/19 History fluticasone propion-salmeterol 1 inh INHALATION BID 12/20/18 01/01/19 History [Advair Diskus] lisinopril 10 mg PO QAM 12/20/18 01/01/19 History magnesium 250 mg PO QPM 12/20/18 12/20/18 History methotrexate sodium 20 mg PO WK 12/20/18 12/20/18 History Patient History Medical History (Updated 01/05/19 @ 11:29 by Jose Gramajo MD) Arthritis 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 COPD (chronic obstructive pulmonary disease) Hearing deficit Hyperlipemia Hypertension Pacemaker HX BRADYCARDIA - 3-5 YR AGO - [facility] (PT NOT SURE) Poor historian Surgical History (Updated 01/05/19 @ 11:31 by Jose Gramajo MD) History of knee replacement (~2009) RIGHT AND LEFT Hx of cataract surgery BOTH EYES S/P lobectomy of lung Family History Daughter Hypertension Social History Preferred Language: Danish Communication Ability: Effective Hearing Ability: Hard of Hearing Beliefs That Will Affect Care: None marital status: / Current Living Situation: Alone current occupational status: retired Feels Safe at Home: Yes Smoking Status: Former smoker Do You Dip or Chew Tobacco: No ; Smoking End Date: 27 YR ; Number of Years Since Quit: 27 ; Second Hand Exposure: No ; Hx Alcohol Use: No Hx Substance Use: No Review of Systems Constitutional: no fever and no chills Eyes: no diplopia Ear, Nose, Mouth, Throat: no ear trauma Respiratory: no hemoptysis Cardiovascular: + chest pain (Appropriate postop) Genitourinary: + difficulty urinating, + urinary hesitancy and + nocturia Integumentary: no acne and no boil Neurologic: no paralysis Psychiatric: no hopelessness Allergy / Immunological: no tongue swelling Physical Exam Constitutional: well developed; no acute distress Eyes: eyes not dysmorphic ENMT: Ears: no external ear abnormality Neck: trachea midline; no anterior neck swelling Respiratory: Chest tube in place Cardiovascular: Vessels: radial pulses present Gastrointestinal (Abdomen): Inspection/Auscultation: abdomen not distended Percussion/Palpation: abdomen soft; abdomen nontender Musculoskeletal: Head/Neck/Chest: normocephalic and neck supple Skin: normal turgor Neurologic: awake; not obtunded Psychiatric: Orientation: oriented x 3 Lymphatic: no lymphadenopathy Results & Data Vital Signs (Past 12 Hours) Vital Signs Temp Pulse Pulse Resp BP Pulse Ox Pulse Ox 01/05/19 10:34 36.7 C 67 20 95/58 L 90 01/05/19 07:28 36.8 C 57 L 28 H 111/65 91 01/05/19 07:08 57 L 18 92 01/05/19 04:00 91 01/05/19 03:11 36.5 C 61 18 119/57 L 91 01/05/19 01:10 63 16 94 01/05/19 00:00 90 Laboratory Results Laboratory Results - last 48 hr 01/03/19 01/04/19 01/04/19 20:52 05:39 07:47 WBC 17.99 H RBC 3.83 L Hgb 12.5 L Hct 37.5 L MCV 97.9 MCH 32.6 MCHC 33.3 RDW Std Deviation 54.0 H RDW Coeff of Lobito 15.3 H Plt Count 165 MPV 9.4 Immature Gran % (Auto) 0.4 Neut % (Auto) 85.8 Lymph % (Auto) 3.1 [place] % (Auto) 10.4 Eos % (Auto) 0.2 Baso % (Auto) 0.1 Immature Gran # (Auto) 0.08 H Neut # (Auto) 15.43 H Lymph # (Auto) 0.56 L [place] # (Auto) 1.87 H Eos # (Auto) 0.04 Baso # (Auto) 0.01 Sodium Potassium Chloride Carbon Dioxide Anion Gap BUN Creatinine 2.96 H D Est Cr Clr Drug Dosing 18.7 Est GFR ( Amer) 21.0 Est GFR (Non-Af Amer) 18.1 BUN/Creatinine Ratio Glucose POC Glucose 131 H Calcium Magnesium Total Creatine Kinase Urine Color Urine Appearance Urine pH Ur Specific [place] Urine Protein Urine Glucose (UA) Urine Ketones Urine Blood Urine Nitrite Urine Bilirubin Urine Urobilinogen Ur Leukocyte Esterase Urine WBC (Auto) Urine RBC (Auto) U Hyaline Cast (Auto) U Epithel Cells (Auto) Urine Bacteria (Auto) Granular Casts 01/04/19 01/04/19 01/05/19 07:47 12:10 05:54 WBC 13.65 H RBC 3.55 L Hgb 11.6 L Hct 34.6 L MCV 97.5 MCH 32.7 MCHC 33.5 RDW Std Deviation 53.2 H RDW Coeff of [place] 15.2 H Plt Count 154 MPV 9.4 Immature Gran % (Auto) 0.4 Neut % (Auto) 82.3 Lymph % (Auto) 6.0 [place] % (Auto) 9.1 Eos % (Auto) 2.1 Baso % (Auto) 0.1 Immature Gran # (Auto) 0.05 H Neut # (Auto) 11.25 H Lymph # (Auto) 0.82 L [place] # (Auto) 1.24 H Eos # (Auto) 0.28 Baso # (Auto) 0.01 Sodium 132 L Potassium 4.7 Chloride 97 L Carbon Dioxide 28 Anion Gap 7.0 BUN 54 H Creatinine 3.08 H Est Cr Clr Drug Dosing 18.0 Est GFR ( Amer) 20.0 Est GFR (Non-Af Amer) 17.3 BUN/Creatinine Ratio 17.5 Glucose 124 H POC Glucose Calcium 8.3 L Magnesium 2.4 Total Creatine Kinase Urine Color Yellow Urine Appearance Clear Urine pH 5.0 Ur Specific [place] 1.017 Urine Protein Negative Urine Glucose (UA) Negative Urine Ketones Negative Urine Blood Negative Urine Nitrite Negative Urine Bilirubin Negative Urine Urobilinogen Negative Ur Leukocyte Esterase Trace H Urine WBC (Auto) 5-10 H Urine RBC (Auto) 0-4 U Hyaline Cast (Auto) 5-10 H U Epithel Cells (Auto) 10-20 H Urine Bacteria (Auto) 1+ H Granular Casts 1-5 H 01/05/19 05:54 WBC RBC Hgb Hct MCV MCH MCHC RDW Std Deviation RDW Coeff of [place] Plt Count MPV Immature Gran % (Auto) Neut % (Auto) Lymph % (Auto) [place] % (Auto) Eos % (Auto) Baso % (Auto) Immature Gran # (Auto) Neut # (Auto) Lymph # (Auto) [place] # (Auto) Eos # (Auto) Baso # (Auto) Sodium 135 L Potassium 4.6 Chloride 101 Carbon Dioxide 28 Anion Gap 6.0 BUN 65 H Creatinine 2.12 H D Est Cr Clr Drug Dosing 28.6 Est GFR ( Amer) 31.5 Est GFR (Non-Af Amer) 27.2 BUN/Creatinine Ratio 30.6 H Glucose 125 H POC Glucose Calcium 8.2 L Magnesium Total Creatine Kinase 698 H Urine Color Urine Appearance Urine pH Ur Specific [place] Urine Protein Urine Glucose (UA) Urine Ketones Urine Blood Urine Nitrite Urine Bilirubin Urine Urobilinogen Ur Leukocyte Esterase Urine WBC (Auto) Urine RBC (Auto) U Hyaline Cast (Auto) U Epithel Cells (Auto) Urine Bacteria (Auto) Granular Casts PG Care Time/CCT Total # of Minutes Spent Total Time Spent with Patient: Total time spent is greater than 50% in coordination of care (as documented) at patient's floor/unit and/or counseling patient:
--- NOTE | 2019-01-05 11:41 | Nephrology Progress Note ---
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: -- s/p RUL on 01/01/19 -- CXR demonstrated small pneumothorax post -- Chest tube with air leak (2) Atrial fibrillation and flutter: -- Cardiology following -- Amiodarone stopped -- Cardizem and lopressor with hold parameters -- Anticoagulated with Eliquis -- BP acceptable at this time -- TTE reviewed (3) Acute kidney injury: -- Clinically consistent with ATN due to hypotension -- Some urinary retention noted which is being monitored with PVR's and bladder scan q shift if no void -- Straight cath PRN -- Euvolemic on exam -- ACEi held -- Medications appropriate for kidney function -- Renal US reviewed -- Urine studies reviewed -- CPK not significantly elevated -- Monitor metabolic profile daily -- Document I/O's Subjective Straight cath performed for urinary retention overnight. 700 ml of drained. UOP improved. Will continue to monitor for urinary retention. Fabio otherwise feels well. Kidney function improving. Appetite good. No fevers or chills. Denies significant pain. Review of Systems Review of Systems: All systems reviewed & are unremarkable except as noted in HPI & below Physical Exam Constitutional: well developed and well nourished; no acute distress Eyes: + anicteric sclerae; no conjunctival abnormality ENMT: Mallampati Class: II Neck: normal visual inspection and trachea midline Respiratory: normal respiratory effort; no respiratory distress and no labored breathing Auscultation: lungs clear to auscultation bilaterally Cardiovascular: Rate/Rhythm: + bradycardic Heart Sounds: normal S1 and normal S2; no murmur Extremities: no edema Gastrointestinal (Abdomen): Percussion/Palpation: abdomen soft; abdomen nontender Musculoskeletal: Extremities: no cyanosis and no clubbing Skin: normal turgor; no lesions Neurologic: Motor/Sensory: no tremor and no asterixis Psychiatric: Orientation: alert and oriented x 3 Results & Data Vital Signs (Past 12 Hours) Vital Signs Temp Pulse Pulse Resp BP Pulse Ox Pulse Ox 01/05/19 10:34 36.7 C 67 20 95/58 L 90 01/05/19 07:28 36.8 C 57 L 28 H 111/65 91 01/05/19 07:08 57 L 18 92 01/05/19 04:00 91 01/05/19 03:11 36.5 C 61 18 119/57 L 91 01/05/19 01:10 63 16 94 01/05/19 00:00 90 Laboratory Results Laboratory Results - last 24 hr 01/04/19 01/05/19 01/05/19 12:10 05:54 05:54 WBC 13.65 H RBC 3.55 L Hgb 11.6 L Hct 34.6 L MCV 97.5 MCH 32.7 MCHC 33.5 RDW Std Deviation 53.2 H RDW Coeff of [place]obt[place] 15.2 H Plt Count 154 MPV 9.4 Immature Gran % (Auto) 0.4 Neut % (Auto) 82.3 Lymph % (Auto) 6.0 [place] % (Auto) 9.1 Eos % (Auto) 2.1 Baso % (Auto) 0.1 Immature Gran # (Auto) 0.05 H Neut # (Auto) 11.25 H Lymph # (Auto) 0.82 L [place] # (Auto) 1.24 H Eos # (Auto) 0.28 Baso # (Auto) 0.01 Sodium 135 L Potassium 4.6 Chloride 101 Carbon Dioxide 28 Anion Gap 6.0 BUN 65 H Creatinine 2.12 H D Est Cr Clr Drug Dosing 28.6 Est GFR ( Amer) 31.5 Est GFR (Non-Af Amer) 27.2 BUN/Creatinine Ratio 30.6 H Glucose 125 H Calcium 8.2 L Total Creatine Kinase 698 H Urine Color Yellow Urine Appearance Clear Urine pH 5.0 Ur Specific [place] 1.017 Urine Protein Negative Urine Glucose (UA) Negative Urine Ketones Negative Urine Blood Negative Urine Nitrite Negative Urine Bilirubin Negative Urine Urobilinogen Negative Ur Leukocyte Esterase Trace H Urine WBC (Auto) 5-10 H Urine RBC (Auto) 0-4 U Hyaline Cast (Auto) 5-10 H U Epithel Cells (Auto) 10-20 H Urine Bacteria (Auto) 1+ H Granular Casts 1-5 H PG Care Time/CCT Total # of Minutes Spent Total Time Spent with Patient: Total time spent is greater than 50% in coordination of care (as documented) at patient's floor/unit and/or counseling patient:
[2019-01-05] MEDS: FINASTERIDE 5 MG TAB PO SCH (12:06)
--- NOTE | 2019-01-05 15:51 | Pulmonology Progress Note ---
Date of Service January 05, 2019 Assessment & Plan (1) S/P lobectomy of lung: Continue current therapy for airway clearance. Suspect persistent air leak will cease within the next 24 to 48 hours. 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 Hudson electively for robotic video-assisted thorascopic surgery. 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 Moved to this area 20 years ago from [place] and is under the care of Dr. Jonah Small/pulmonary medicine in [place]. Patient CT scan and subsequent PET scan showed a small hypermetabolic mass right upper lobe worrisome for a neoplasm. He underwent a robotic right video-assisted thoracoscopy with right upper lobe wedge resection, right upper lobectomy with mediastinal lymphadenectomy on 01/01/2019. He was found to be a squamous cell carcinoma . He has had a mild postoperative but persistent air leak immediately gotten out of bed and began ambulation. Yesterday 1700 cc of serosanguineous fluid was drained into the Thoraklex and the pneumothorax postoperatively had resolved. Course was complicated by atrial fibrillation with flutter and hypotension. He was started on IV amiodarone drip after receiving a bolus. He is also anti-coagulated with Eliquis. Been followed by Dr. Lowe in the hospital. Chest x-ray today showed small apical pneumothorax with persistent but minimal air leak. Amiodarone was discontinued and Cardizem 60 mg twice daily and Lopressor 25 mg p.o. twice daily was instituted. I was asked to see patient in consultation. LVEF is 60% with no regional wall motion abnormalities. Patient was felt to have suffered an acute kidney injury secondary to ATN but appeared euvolemic on exam and was seen by nephrology. O2 sat 94% on low-flow O2. She is doing quite well today still has a small air leak but no other complaints. Denies sensation of dyspnea or significant cough. Responding to airway clearance maneuvers. S x-ray today shows postoperative changes with small apical residual pneumothorax . Review of Systems Constitutional: no problem reported Eyes: no problem reported Ear, Nose, Mouth, Throat: no problem reported Respiratory: no problem reported Cardiovascular: no problem reported Gastrointestinal: no problem reported Genitourinary: no problem reported Musculoskeletal: no problem reported Integumentary: no problem reported Neurologic: no problem reported Psychiatric: no problem reported Endocrine: no problem reported Hematologic / Lymphatic: no problem reported Allergy / Immunological: no problem reported Physical Exam Constitutional: well developed and well nourished; no acute distress Eyes: PERRL, conjunctivae normal, anicteric sclerae ENMT: external ear and nose normal, oropharynx normal Neck: trachea midline, no thyromegaly Respiratory: normal respiratory effort, + hyperresonance to percussion and + prolonged expiratory phase Auscultation: + diminished lung sounds (Right base) Cardiovascular: RRR, no murmur, no edema Palpation: normal PMI; no thrill Gastrointestinal (Abdomen): normal bowel sounds, soft, nontender, no hepatosplenomegaly Musculoskeletal: no cyanosis or clubbing, extremities motor strength 5/5 Gait: normal gait Skin: no rashes, warm and dry Neurologic: PERRL, EOMI, accommodation nl, no face palsy, no dysarthria Psychiatric: A+Ox3, euthymic affect Lymphatic: no cervical or axillary lymphadenopathy Results & Data Vital Signs (Past 12 Hours) Vital Signs Temp Pulse Pulse Resp BP BP Pulse Ox 01/05/19 15:43 36.3 C L 63 16 120/77 92 01/05/19 13:41 60 18 94 01/05/19 13:20 36.6 C 60 20 107/65 95 01/05/19 10:34 36.7 C 67 20 95/58 L 90 01/05/19 07:28 36.8 C 57 L 28 H 111/65 91 01/05/19 07:08 57 L 18 92 01/05/19 04:00 Pulse Ox 01/05/19 15:43 01/05/19 13:41 01/05/19 13:20 01/05/19 10:34 01/05/19 07:28 01/05/19 07:08 01/05/19 04:00 91 PG Care Time/CCT Total # of Minutes Spent Total Time Spent with Patient: Total time spent is greater than 50% in coordination of care (as documented) at patient's floor/unit and/or counseling patient:
[2019-01-05] MEDS: TAMSULOSIN HCL 0.4 MG CAP PO SCH (21:14)
[2019-01-05] MEDS: ATORVASTATIN 10 MG TAB PO SCH (21:15)
[2019-01-05] MEDS: MAGNESIUM OXIDE 400 MG TAB PO SCH (21:15)
[2019-01-06] MEDS: ACETAMINOPHEN 325 MG TAB PO SCH ×4 (00:16→17:40)
[2019-01-06] MEDS: ALBUTEROL 0.083% NEBU SOLN 3 ML VIAL NEB SCH ×4 (01:09→19:47)
[2019-01-06 06:28] LABS: Basophils # (auto) 0.01 K/uL (0-0.2); Basophils % (auto) 0.1 %; Eosinophils # (auto) 0.18 K/uL (0-0.5); Eosinophils % (auto) 1.3 %; Hematocrit (blood only) 36.2 % (42-52); Hemoglobin 12.1 g/dL (14.0-18.0); Immature Granulocytes # (auto) 0.04 K/uL (0.00-0.02); Immature Granulocytes % (auto) 0.3 %; Lymphocytes # (auto) 0.32 K/uL (1.2-3.4); Lymphocytes % (auto) 2.4 %; Mean Corpuscular Hemoglobin 32.9 pg (25-34); Mean Corpuscular Volume 98.4 fL (80-100); Mean Platelet Volume 9.5 fL (7.4-10.4); Monocytes # (auto) 1.64 K/uL (0.11-0.59); Monocytes % (auto) 12.2 %; Neutrophils # (auto) 11.27 K/uL (1.4-6.5); Neutrophils % (auto) 83.7 %; Platelet Count 176 K/uL (130-400); RDW Coefficient of Variation 15.4 % (11.5-14.5); Red Blood Count 3.68 M/uL (4.7-6.1); White Blood Count 13.46 K/uL (4.8-10.8)
[2019-01-06 06:30] LABS: Mean Corpuscular Hgb Conc 33.4 g/dL (32-36)
[2019-01-06 07:04] LABS: BUN Creatinine Ratio 33.3 (10-20); Calcium 8.7 mg/dl (8.5-10.1); Creatinine Clr Calc Pharmacy 36.8 ml/min; Est GFR (African American) 42.6; Est GFR (Non-African American) 36.8; Potassium 5.3 mmol/L (3.5-5.1)
[2019-01-06 07:07] LABS: Prostate Specific Antigen 7.18 ng/ml (0-4)
--- NOTE | 2019-01-06 07:54 | XRay Report ---
XR chest 1V portable CLINICAL HISTORY: 88 years-old Male presenting with right lobectomy. TECHNIQUE: Portable upright AP view of the chest was obtained. COMPARISON: 01/05/2019. FINDINGS: Left subclavian pacer with leads to the right atrium and right ventricular apex. An additional right ventricular apex lead may represent an abandoned lead. Atherosclerosis, tortuosity, and prominence of the thoracic aorta as on prior exam. This may in part relate to slight TURKISH patient rotation. Cardiac silhouette enlarged. A right pleural drain remains position at the right mid lung with associated so ft tissue emphysema along the inferior right lateral chest wall. Low lung volume on the right with di ffuse added density in comparison to the left. Suture margin projects over the right hilum from repor tae right lobectomy. No new focal opacity. Suspected small right apical pneumothorax. Left lung and p leural space clear. Degenerative changes of the thoracic spine. Upper abdomen normal. IMPRESSION: 1. Persistent small right apical pneumothorax with the right pleural drain remaining in place. 2. Postsurgical changes of the right lung. 3. Cardiomegaly. No volume overload or congestive change. Electronically signed by: Jamir Husain M.D. 01/06/2019 7:53 AM
--- NOTE | 2019-01-06 08:51 | Surgery Progress Note ---
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 Yo. He has a stage I squamous cell carcinoma of the lung. 19 lymph nodes were evaluated and had no evidence of metastatic disease. His margins are negative. The primary itself was only 1.5 cm across. I do not detect an air leak today. His drainage is serous and scant. He is now postoperative day 5. We will probably remove this chest tube and let him go tomorrow morning. Present on Admission?: No Subjective Mr. Yo was seen this morning. He looks great. He sitting up eating breakfast. I do not see an air leak today. His rhythm has been controlled. He is in a regular rhythm this morning. His aeration is good. His x-ray looks good. His only complaint is he is tired of having the chest tube. His pain is well controlled. Physical Exam Physical Exam: He is moving air well on the right. His chest tube site and operative incisions are clean. He has no peripheral edema. He has a regular rate and rhythm of his heart this morning without a significant rub. Results & Data Vital Signs (Past 12 Hours) Vital Signs Temp Pulse Pulse Resp BP Pulse Ox 01/06/19 08:08 36.6 C 65 20 120/78 93 01/06/19 07:09 60 16 92 01/06/19 04:25 94 01/06/19 04:15 91 01/06/19 01:09 61 16 97 01/05/19 22:58 36.6 C 60 16 119/72 94 PG Care Time/CCT Total # of Minutes Spent Total Time Spent with Patient: Total time spent is greater than 50% in coordination of care (as documented) at patient's floor/unit and/or counseling patient:
[2019-01-06] MEDS: FLUTICASONE/SALMETEROL 250/50 (ADVAIR) 14 PUFF/1 INHALER INH SCH ×2 (09:12→21:21)
[2019-01-06] MEDS: FINASTERIDE 5 MG TAB PO SCH (09:12)
[2019-01-06] MEDS: PANTOprazole 40 MG TAB PO SCH (09:12)
[2019-01-06] MEDS: DOCUSATE SODIUM 100 MG CAP PO SCH ×2 (09:12→21:22)
[2019-01-06] MEDS: METOPROLOL TARTRATE 25 MG TAB PO SCH ×2 (09:12→21:20)
[2019-01-06] MEDS: APIXABAN 5 MG TABLET PO SCH ×2 (09:13→21:19)
[2019-01-06] MEDS ORDERED: SODIUM POLYSTYRENE SULFONATE 15G/60ML SUSP PO ONE (09:15)
--- NOTE | 2019-01-06 12:34 | Nephrology Progress Note ---
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 Some urinary retention noted which is being monitored with PVR's and bladder scan q shift if no void. Renal function consistently improving, electrolyte acceptable. Blood pressure volume status acceptable. --suggest monitoring renal function while in hospital, no further nephrology evaluation indicated at this time. Will sign off. Aidan Mccarthy was seen and examined in his room this morning. Overall he feels tired but denies any specific symptoms. Blood pressure stable. Renal function continues to improve. Review of Systems Review of Systems: All systems reviewed & are unremarkable except as noted in HPI & below Physical Exam Constitutional: WD/WN, vitals as above Respiratory: normal respiratory effort, lungs clear to auscultation Cardiovascular: RRR, no murmur, no edema Skin: no rashes, warm and dry Neurologic: moves all extremities and awake Psychiatric: A+Ox3, euthymic affect Results & Data Vital Signs (Past 12 Hours) Vital Signs Temp Pulse Pulse Resp BP Pulse Ox 01/06/19 11:57 36.5 C 72 21 118/68 94 01/06/19 10:41 87 L 01/06/19 08:57 94 01/06/19 08:45 88 L 01/06/19 08:08 36.6 C 65 20 120/78 93 01/06/19 07:09 60 16 92 01/06/19 04:25 94 01/06/19 04:15 91 01/06/19 01:09 61 16 97 PG Care Time/CCT Total # of Minutes Spent Total Time Spent with Patient: Total time spent is greater than 50% in coordination of care (as documented) at patient's floor/unit and/or counseling patient:
--- NOTE | 2019-01-06 16:34 | Cardiology Progress Note ---
Date of Service January 06, 2019 Assessment & Plan (1) Atrial fibrillation and flutter: Although I do not have much in way of records I believe he has had a long history of atrial fibrillation and that is why he was on anticoagulation, which he should be. He did not appear to be on any AV carlito blocking medications at home, perhaps that is an error in our medication list since he does not really know his medications. We do not have to worry about bradycardia since he has a pacemaker. I did start metoprolol and diltiazem, he was little bit hypotensive after receiving intravenous doses but now on low oral doses his blood pressure is stable. His heart rate appears to be under good control (he is not on telemetry). I am going to switch him to once a day medications from the twice a day medications he is on now, starting tomorrow. (2) Pacemaker: He has a pacemaker in place, I do not know what that device is. We could probably find out if we need to interrogate it but there is no reason to think it is not working therefore I am not going to pursue it at the moment unless there is an issue with the device. (3) Anticoagulant long-term use: He should be on an anticoagulant for his atrial fibrillation, I assume that he is on Eliquis for that not for some other reason. In any case he is back on it and it should be effective for stroke prevention for his arrhythmia. Subjective He is feeling relatively well today, he has no palpitations, he tells me he is somewhat lightheaded and short of breath with exertion. Currently he is in bed. Physical Exam Physical Exam: Constitutional: Alert, cooperative and in no distress. Pulmonary: Decreased breath sounds in right lung. Cardiac: Irregular rhythm with no murmur, gallop or rub. Abdomen: Soft, nontender with normal bowel sounds. Extremities: No edema. Skin: No rash, ecchymoses or petechiae. Results & Data Vital Signs (Past 12 Hours) Vital Signs Temp Pulse Pulse Pulse Resp BP BP 01/06/19 15:16 36.9 C 69 18 104/63 01/06/19 13:42 70 18 01/06/19 11:57 36.5 C 72 21 118/68 01/06/19 10:41 01/06/19 08:57 01/06/19 08:45 01/06/19 08:08 36.6 C 65 20 120/78 01/06/19 07:09 60 16 Pulse Ox 01/06/19 15:16 92 01/06/19 13:42 94 01/06/19 11:57 94 01/06/19 10:41 87 L 01/06/19 08:57 94 01/06/19 08:45 88 L 01/06/19 08:08 93 01/06/19 07:09 92 PG Care Time/CCT Total # of Minutes Spent Total Time Spent with Patient: Total time spent is greater than 50% in coordination of care (as documented) at patient's floor/unit and/or counseling patient:
[2019-01-06] MEDS: OXYCODONE HCL IR 5 MG TAB (IMMEDIATE RELEASE) PO PRN (20:32)
[2019-01-06] MEDS: ATORVASTATIN 10 MG TAB PO SCH (21:19)
[2019-01-06] MEDS: MAGNESIUM OXIDE 400 MG TAB PO SCH (21:21)
[2019-01-06] MEDS: TAMSULOSIN HCL 0.4 MG CAP PO SCH (21:21)
[2019-01-07] MEDS: ACETAMINOPHEN 325 MG TAB PO SCH ×5 (00:08→23:05)
[2019-01-07] MEDS: ALBUTEROL 0.083% NEBU SOLN 3 ML VIAL NEB SCH ×4 (01:18→19:19)
[2019-01-07] MEDS: OXYCODONE HCL IR 5 MG TAB (IMMEDIATE RELEASE) PO PRN ×2 (03:09→20:27)
[2019-01-07 06:31] LABS: BUN Creatinine Ratio 34.2 (10-20); Calcium 8.4 mg/dl (8.5-10.1); Creatinine Clr Calc Pharmacy 40.2 ml/min; Est GFR (African American) 47.4; Est GFR (Non-African American) 40.9
[2019-01-07] MEDS: FLUTICASONE/SALMETEROL 250/50 (ADVAIR) 14 PUFF/1 INHALER INH SCH ×2 (08:07→20:21)
[2019-01-07] MEDS: FINASTERIDE 5 MG TAB PO SCH (08:08)
[2019-01-07] MEDS: PANTOprazole 40 MG TAB PO SCH (08:08)
[2019-01-07] MEDS: APIXABAN 5 MG TABLET PO SCH ×2 (08:09→20:22)
[2019-01-07] MEDS: dilTIAZem HCL 120 MG CAPCR PO SCH (08:12)
[2019-01-07] MEDS: DOCUSATE SODIUM 100 MG CAP PO SCH ×2 (08:12→20:24)
[2019-01-07] MEDS: METOPROLOL SUCC 50MG EXT REL TAB PO SCH (08:12)
[2019-01-07] MEDS: MoRPHine SULFATE 2 MG/ML CARP IV PRN (08:16)
--- NOTE | 2019-01-07 08:42 | XRay Report ---
XR chest 1V portable CLINICAL HISTORY: lung resection postoperative evaluation COMPARISON STUDY: 01/06/2019 FINDINGS: Left lung remains clear. Stable postoperative changes right hemithorax with a right mid gabe st appears to be in position. No evidence for pneumothorax. This is considered an improvement compared to the prior study. Effacement subcutaneous emphysema unchanged IMPRESSION: 1. Improved exam with no significant residual pneumothorax. 2. Remainder the study is unchanged from prior exam. The above report was generated using voice recognition software. It may contain grammatical, syntax or spelling errors. Electronically signed by: Paddy Alvarez M.D. 01/07/2019 8:41 AM
--- NOTE | 2019-01-07 12:05 | XRay Report ---
XR chest 1V portable CLINICAL HISTORY: lung resection COMPARISON STUDY: 01/07/2019 FINDINGS: The heart remains enlarged. There is aortic tortuosity/ectasia. There is a left-sided dual- chamber central venous pacemaker. There is no change in position of the right-sided chest tube. No pn eumothorax is visualized. There are stable interstitial right basilar opacities.[ IMPRESSION: 1. No significant change from the prior study 2. Postsurgical changes in the right hemithorax. No change in the position of a right-sided chest tub e. No evidence of pneumothorax Electronically signed by: Mirza Guerrero M.D. 01/07/2019 12:03 PM
--- NOTE | 2019-01-07 13:52 | XRay Report ---
XR chest 1V portable CLINICAL HISTORY: Chest tube removal COMPARISON STUDY: 01/07/2019 FINDINGS: The cardiac and mediastinal contours remain stable. There is a left subclavian dual-chamber central venous pacemaker. There is a small right pleural effusion. There are minor right basilar air space opacities. The right-sided chest tube has been removed. Now evident is a 3 cm right apical pneu mothorax.[ IMPRESSION: 1. 3 cm right apical pneumothorax status post removal of the right-sided chest tube. Electronically signed by: Mirza Guerrero M.D. 01/07/2019 1:51 PM
--- NOTE | 2019-01-07 15:05 | Surgery Progress Note ---
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 Yo actually looks quite good however, I am reticent to send him home. I am afraid he will end up back in the emergency room quite quickly. He cannot go to the bathroom by himself. I think he would benefit from a rehab stay closer to home. He lives quite far away from the hospital. We will see how he looks in the morning and have physical therapy evaluate him. From a thoracic surgery and cancer standpoint I am very pleased. We will check a chest x-ray in the morning. Present on Admission?: Yes Subjective Patient looks quite good today. We have finally managed to wean him off the oxygen. He is still a bit unstable however. For an 88-year-old have gone through the surgery and atrial fibrillation which he is gone through, he has understandably taken a step back. Patient lives alone is going to be difficult for him to go home. Otherwise he is eating well. His pain is much better since we removed his chest tube. His x-ray looks quite good. He has an unchanged small apical pneumothorax. Physical Exam Respiratory: He sounds better on the right since the tube was removed. He has no wheezing. He has a Bah catheter in place. Results & Data Vital Signs (Past 12 Hours) Vital Signs Temp Pulse Pulse Resp BP BP Pulse Ox 01/07/19 14:57 36.5 C 62 18 127/73 92 01/07/19 13:38 63 94 01/07/19 07:48 36.7 C 62 18 133/71 90 01/07/19 07:14 72 18 90 01/07/19 06:31 90 01/07/19 05:41 90 PG Care Time/CCT Total # of Minutes Spent Total Time Spent with Patient: Total time spent is greater than 50% in coordination of care (as documented) at patient's floor/unit and/or counseling patient:
[2019-01-07] MEDS: TAMSULOSIN HCL 0.4 MG CAP PO SCH (20:22)
[2019-01-07] MEDS: MAGNESIUM OXIDE 400 MG TAB PO SCH (20:22)
[2019-01-07] MEDS: ATORVASTATIN 10 MG TAB PO SCH (20:23)
[2019-01-08] MEDS: ALBUTEROL 0.083% NEBU SOLN 3 ML VIAL NEB SCH ×4 (01:07→19:03)
[2019-01-08] MEDS: ACETAMINOPHEN 325 MG TAB PO SCH ×3 (06:13→18:25)
--- NOTE | 2019-01-08 07:28 | XRay Report ---
XR chest 1V portable CLINICAL HISTORY: 88 years-old Male presenting with lobectomy. TECHNIQUE: Portable upright AP view of the chest was obtained. COMPARISON: 01/07/2019. FINDINGS: Left subclavian pacer with leads in the right atrium, right ventricular apex, and an additional right ventricular apical and abandoned lead noted. Volume loss in the right lung with slight rightward dev iation of the cardiomediastinal silhouette as on prior. The thoracic aorta is mildly prominent and to rtuous. Mild cardiac silhouette prominence. Soft tissue emphysema along the inferior right chest wall likely from recent pleural drain. Side interval increase in diffuse opacity of the right lung. Sutur e margin is noted in the right mid lung. Right apical pneumothorax remains present unchanged in size. Left lung and pleural space clear. Degenerative changes of the thoracic spine. Advanced degenerative changes of the glenohumeral joints. Upper abdomen normal. IMPRESSION: 1. Unchanged right apical pneumothorax. 2. Post surgical changes of the right lung. 3. Increased diffuse added density of the lung concerning for increasing right pleural effusion and atelectasis versus developing asymmetric right lung pulmonary edema. Electronically signed by: Jamir Husain M.D. 01/08/2019 7:27 AM
[2019-01-08] MEDS: METOPROLOL SUCC 50MG EXT REL TAB PO SCH (08:52)
[2019-01-08] MEDS: PANTOprazole 40 MG TAB PO SCH (08:52)
[2019-01-08] MEDS: FLUTICASONE/SALMETEROL 250/50 (ADVAIR) 14 PUFF/1 INHALER INH SCH ×2 (08:52→20:33)
[2019-01-08] MEDS: FINASTERIDE 5 MG TAB PO SCH (08:53)
[2019-01-08] MEDS: APIXABAN 5 MG TABLET PO SCH ×2 (08:53→20:32)
[2019-01-08] MEDS: dilTIAZem HCL 120 MG CAPCR PO SCH (08:53)
[2019-01-08] MEDS: DOCUSATE SODIUM 100 MG CAP PO SCH ×2 (08:57→20:37)
--- NOTE | 2019-01-08 13:34 | Surgery Progress Note ---
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 He needs to go to rehab center. He has been accepted will not be excepted until Sunday which is 2 days from now. I would work him very hard with physical therapy and ambulation we will get him out of the hospital in 2 days. Present on Admission?: Yes (2) S/P lobectomy of lung: Present on Admission?: No (3) Atrial fibrillation and flutter: Present on Admission?: Yes Subjective Mr. Yo is improving. Removing his chest tube is helped him tremendously however he is markedly hypoxic. He walked down the hallway his saturations quickly dropped into the upper 70s. He quickly rebounded with 2 L of oxygen. His pain is much improved he has a good cough. His x-ray shows no infiltrates or effusions or pneumothoraces. Physical Exam Physical Exam: Moving air well bilaterally and has clean incisions from his surgery. Results & Data Vital Signs (Past 12 Hours) Vital Signs Temp Pulse Resp BP Pulse Ox 01/08/19 09:39 64 18 93 01/08/19 07:45 65 18 91 01/08/19 07:00 36.7 C 65 16 137/74 90 PG Care Time/CCT Total # of Minutes Spent Total Time Spent with Patient: Total time spent is greater than 50% in coordination of care (as documented) at patient's floor/unit and/or counseling patient:
[2019-01-08] MEDS: ATORVASTATIN 10 MG TAB PO SCH (20:32)
[2019-01-08] MEDS: TAMSULOSIN HCL 0.4 MG CAP PO SCH (20:32)
[2019-01-08] MEDS: MAGNESIUM OXIDE 400 MG TAB PO SCH (20:33)
[2019-01-09] MEDS: ACETAMINOPHEN 325 MG TAB PO SCH ×5 (00:36→23:45)
[2019-01-09] MEDS: ALBUTEROL 0.083% NEBU SOLN 3 ML VIAL NEB SCH ×4 (01:11→19:09)
--- NOTE | 2019-01-09 07:37 | XRay Report ---
XR chest 1V portable CLINICAL HISTORY: 88 years-old Male presenting with lobectomy. TECHNIQUE: Portable upright AP view of the chest was obtained. COMPARISON: 01/08/2019. FINDINGS: Left subclavian a with leads to the right atrium and right ventricular apex. An additional abandoned right ventricular apical lead noted. Atherosclerosis and prominence of the thoracic aorta. Cardiac si lhouette mildly enlarged. Mediastinal shift to the right as on prior consistent with the right lobect santos. Diffuse added density of the right lung with prominence of the interstitium of the right lung. T he previously demonstrated pneumothorax is not well visualized though some degree of trace pneumothor ax likely persists. A suture line is noted in the right mid lung. Trace right effusion. Left lung and pleural space clear. Degenerative changes of the thoracic spine. Upper abdomen normal. IMPRESSION: 1. Right pneumothorax not well visualized. Consider PA view for better visualization. This likely re presents decreased size of the now trace right apical pneumothorax. 2. Postsurgical changes of the right lung with suspected mild congestive change. 3. Persistent small right pleural effusion. 4. Cardiomegaly. Electronically signed by: Jamir Husain M.D. 01/09/2019 7:36 AM
[2019-01-09] MEDS ORDERED: BISACODYL 10 MG SUPP PR PRN (07:46)
[2019-01-09] MEDS ORDERED: SOD PHOSPHATE/SOD BIPHOSPHATE ENEMA 132 ML BTL PR PRN (07:46)
[2019-01-09] MEDS ORDERED: POLYETHYLENE (MIRALAX) 17 GM PACK PO PRN (07:46)
[2019-01-09] MEDS: FLUTICASONE/SALMETEROL 250/50 (ADVAIR) 14 PUFF/1 INHALER INH SCH ×2 (08:53→20:27)
[2019-01-09] MEDS: APIXABAN 5 MG TABLET PO SCH ×2 (08:54→20:27)
[2019-01-09] MEDS: dilTIAZem HCL 120 MG CAPCR PO SCH (08:54)
[2019-01-09] MEDS: PANTOprazole 40 MG TAB PO SCH (08:54)
[2019-01-09] MEDS: FINASTERIDE 5 MG TAB PO SCH (08:54)
[2019-01-09] MEDS: METOPROLOL SUCC 50MG EXT REL TAB PO SCH (08:54)
[2019-01-09] MEDS: DOCUSATE SODIUM 100 MG CAP PO SCH ×2 (09:32→20:27)
--- NOTE | 2019-01-09 10:29 | Cardiology Progress Note ---
Date of Service January 09, 2019 Assessment & Plan (1) Atrial fibrillation and flutter: Although I do not have much in way of records I believe he has had a long history of atrial fibrillation and that is why he was on anticoagulation, which he should be. He did not appear to be on any AV carlito blocking medications at home, perhaps that is an error in our medication list since he does not really know his medications. We do not have to worry about bradycardia since he has a pacemaker. I did start metoprolol and diltiazem, he was little bit hypotensive after receiving intravenous doses but on oral doses his blood pressure is stable. His heart rate appears to be under good control (he is not on telemetry). I did switch him to once daily dosing, that seems to be controlling his heart rate and blood pressure adequately. (2) Pacemaker: He has a pacemaker in place, I do not know what that device is. We could probably find out if we need to interrogate it, but there is no reason to think it is not working therefore I am not going to pursue it at the moment unless there is an issue with the device. (3) Anticoagulant long-term use: He should be on an anticoagulant for his atrial fibrillation, I assume that he is on Eliquis for that not for some other reason. In any case he is back on it and it should be effective for stroke prevention for his arrhythmia. Subjective He is is currently bed and has no complaints, he has no palpitations, he denies shortness of breath. Physical Exam Physical Exam: Constitutional: Alert, cooperative and in no distress. Pulmonary: Decreased breath sounds in right lung. Cardiac: Irregular rhythm with no murmur, gallop or rub. Abdomen: Soft, nontender with normal bowel sounds. Extremities: No edema. Skin: No rash, ecchymoses or petechiae. Results & Data Vital Signs (Past 12 Hours) Vital Signs Temp Pulse Pulse Resp BP BP Pulse Ox 01/09/19 08:51 93 H 124/72 01/09/19 07:29 59 L 18 97 01/09/19 07:23 36.6 C 61 16 138/71 97 01/09/19 06:03 90 01/09/19 01:11 61 16 93 01/08/19 23:03 36.8 C 60 16 122/68 92 PG Care Time/CCT Total # of Minutes Spent Total Time Spent with Patient: Total time spent is greater than 50% in coordination of care (as documented) at patient's floor/unit and/or counseling patient:
--- NOTE | 2019-01-09 11:15 | Surgery Progress Note ---
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 is s/p RUL on 01/01/19 -encourage coughing, deep breathing, use of IS -ambulation encouraged: -RN notes pt. has been ambulating in hallway but is somewhat unsteady and uses walker -as pt is somewhat unsteady, PT & OT have recommended rehab with tent. plans for placement tomorrow (2) Atrial fibrillation and flutter: -clinically in NSR -cardizem 120 mg daily -lopressor 50 mg daily -cardiology input noted following: -2-d echo on 01/04/19 showed good LV function (60%EF), no , normal, no MR RA pressures -he is anticoagulated with Eliquis (3) Acute kidney injury: -suspect due to hypotension while in rapid a-fib -pt. was taking GABBIE-I pre-op: -this is on hold -meds reviewed and no other nephrotoxins noted -discussed with Dr. Matthews: -he feels this was likely due to ATN due to hypotension and should resolved without additional interventions -serial labs have shown improvement in renal function (4) Urinary retention: -he is receiving flomax -urology has added proscar -pizano in place for bladder rest with plans for voiding trial approx 1 week after pizano inserted Subjective Pt. denies SOB and feels comfortable. He continues to ambulate in hallway. Discussed with RN--no concerns noted. Physical Exam Constitutional: well developed and well nourished; no acute distress Neck: trachea midline Respiratory: normal respiratory effort and + respiratory distress; no labored breathing slight decrease of BS noted at bases; no crepitus in sofr tissue of chest wall or neck Cardiovascular: Rate/Rhythm: regular rate and regular rhythm Musculoskeletal: no calf tenderness Neurologic: no focal deficits--follows commands and moves all extremities Results & Data Vital Signs (Past 12 Hours) Vital Signs Temp Pulse Pulse Resp BP BP Pulse Ox 01/09/19 08:51 93 H 124/72 01/09/19 07:29 59 L 18 97 01/09/19 07:23 36.6 C 61 16 138/71 97 01/09/19 06:03 90 01/09/19 01:11 61 16 93 PG Care Time/CCT Total # of Minutes Spent Total Time Spent with Patient: Total time spent is greater than 50% in coordination of care (as documented) at patient's floor/unit and/or counseling patient:
[2019-01-09] MEDS: TAMSULOSIN HCL 0.4 MG CAP PO SCH (20:27)
[2019-01-09] MEDS: ATORVASTATIN 10 MG TAB PO SCH (20:27)
[2019-01-09] MEDS: MAGNESIUM OXIDE 400 MG TAB PO SCH (20:28)
[2019-01-10] MEDS: ALBUTEROL 0.083% NEBU SOLN 3 ML VIAL NEB SCH ×3 (00:59→13:27)
[2019-01-10] MEDS: ACETAMINOPHEN 325 MG TAB PO SCH ×3 (06:11→18:22)
[2019-01-10] MEDS: DOCUSATE SODIUM 100 MG CAP PO SCH (09:15)
[2019-01-10] MEDS: APIXABAN 5 MG TABLET PO SCH ×2 (09:16→18:24)
[2019-01-10] MEDS: FINASTERIDE 5 MG TAB PO SCH (09:16)
[2019-01-10] MEDS: PANTOprazole 40 MG TAB PO SCH (09:16)
[2019-01-10] MEDS: dilTIAZem HCL 120 MG CAPCR PO SCH (09:16)
[2019-01-10] MEDS: METOPROLOL SUCC 50MG EXT REL TAB PO SCH (09:16)
[2019-01-10] MEDS: FLUTICASONE/SALMETEROL 250/50 (ADVAIR) 14 PUFF/1 INHALER INH SCH (09:17)
--- NOTE | 2019-01-10 13:02 | Surgery Progress Note ---
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 is s/p RUL on 01/01/19 -contiue to encourage coughing, deep breathing, use of IS -ambulation continuallu encouraged: -RN notes pt. remains unsteady and uses walker -PT & OT have recommended rehab with tent. plans for placement once authorization obtained (2) Atrial fibrillation and flutter: -clinically in NSR -cardizem 120 mg daily -lopressor 50 mg daily -cardiology input noted following: -2-d echo on 01/04/19 showed good LV function (60%EF), no , normal, no MR RA pressures -he is anticoagulated with Eliquis (3) Acute kidney injury: -suspect due to hypotension while in rapid a-fib -pt. was taking GABBIE-I pre-op: -this is on hold -meds reviewed and no other nephrotoxins noted -discussed with Dr. Matthews: -he feels this was likely due to ATN due to hypotension and should resolved without additional interventions -serial labs have shown improvement in renal function (4) Urinary retention: -he is receiving flomax -urology has added proscar -pizano in place for bladder rest with plans for voiding trial approx 1 week after pizano inserted Subjective Pt. feels good--no SOB. He continues to feel somewhat unsteady on feet. Discussed with RN--no concerns as pt. had an uneventful night. Physical Exam Physical Exam: all incisions inspected and are healing well Constitutional: well developed and well nourished; no acute distress Respiratory: normal respiratory effort; no respiratory distress and no labored breathing BS are decreased at bases slightly; no crepitus noted in soft tissue of chest wall or neck Cardiovascular: Rate/Rhythm: regular rate and regular rhythm Gastrointestinal (Abdomen): Inspection/Auscultation: abdomen normal to inspection Percussion/Palpation: abdomen soft; abdomen nontender Musculoskeletal: no calf tenderness Results & Data Vital Signs (Past 12 Hours) Vital Signs Temp Pulse Pulse Resp BP Pulse Ox 01/10/19 07:45 36.7 C 67 16 125/66 94 01/10/19 07:10 61 18 93 01/10/19 06:20 93 01/10/19 01:00 72 20 92 PG Care Time/CCT Total # of Minutes Spent Total Time Spent with Patient: Total time spent is greater than 50% in coordination of care (as documented) at patient's floor/unit and/or counseling patient:
--- NOTE | 2019-01-10 16:56 | Discharge Summary ---
ADMISSION DIAGNOSIS: Right lung mass. 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 HOSPITAL COURSE: This is an 88-year-old male who is seen and evaluated by Dr. Hudson as an outpatient. The patient was noted to have a right lung nodule of the right upper lobe. On date of admission Dr. Hudson took the patient to the operating room which was 01/01/2019. He performed a robotic assisted right video-assisted thoracoscopy with right upper lobe wedge resection. Frozen resection revealed a nonsmall cell lung cancer and Dr. Hudson then proceeded with a right upper lobectomy with mediastinal lymphadenectomy. Final pathology did show squamous cell lung cancer and his pathologic staging was [id number]. During patient's postoperative course the patient did have a small right-sided pneumothorax which resolved with appropriate management of his chest tube. Once the patient's air leak was resolved the pneumothorax was resolved. The patient had his chest tube discontinued in the appropriate fashion and a portable chest x-ray did not reveal significant sized pneumothorax. He did have a few issues during the postoperative period, one included atrial fibrillation. He was initially started on an amiodarone drip and was seen in consultation by cardiology. Adjustment was made in the patient's calcium channel blocking medications as well as beta blockers. The patient was ultimately discharged on diltiazem 120 mg daily, metoprolol 50 mg daily and he achieved excellent rate control. It is also noteworthy to mention that he was anticoagulated with b.i.d. Eliquis, which was resumed postop day #2 and continued throughout his hospitalization. It should be noted the patient did have acute kidney injury during his postoperative course. He was seen in consultation by nephrology and it was felt that his acute kidney injury was merely due to ATN secondary to hypotension the patient experienced while he was in atrial fibrillation. His peak creatinine was noted to be 3.08 on 01/04/2019 but this improved to 1.5 by 01/07/2019. The only measures that were taken to correct his renal function were holding GABBIE inhibitor which he was taking as an outpatient. No other nephrotoxic medications were identified. Finally, the patient experienced some urinary retention. He was having high postvoid residual so he was seen by urology and he had a Bah catheter placed for a week's worth of bladder rest and he did go home with this. Urology did initiate Flomax 0.4 mg daily as well as Proscar 5 mg daily and again a voiding trial was to be scheduled approximately 1 week after Bah was inserted. The patient did have some deconditioning and difficulty with ambulation and it was felt by PT and OT that patient would benefit from acute inpatient rehabilitation. His rehab facility of choice did not have any beds available and patient continued to work with physical and occupational therapy during his postoperative period and he ultimately was felt to have enough strength to adequately be discharged home safely and his family felt comfortable with this. Finally, patient did have some hypoxic episodes postoperatively and this was adequately treated with supplemental oxygen via nasal cannula. It was felt the patient may require oxygen with activity but on the day of discharge myself and the patient's RN ambulated the patient in the hallway. Before beginning ambulation at rest he was approximately 95-96% on room air and with ambulation his pulse ox remained between 90 and 93% with one episode of a pulse ox of 89%, which lasted less than 2 seconds. Therefore, he was not felt to need home oxygen. He was deemed stable for discharge on 01/10/2019. His most recent labs were on 01/06/2019 with a CBC that showed a white blood cell count of 13.4, hemoglobin and hematocrit were 12.1 and 36.2 and his platelet count was within the normal range and most recent chemistry profile was on 01/07/2019 showed sodium was 135, potassium was 5.0. His BUN and creatinine were 52 and 1.5. DISCHARGE MEDICATIONS: 1. The patient was taking Tylenol 650 mg every 6 hours. 2. Diltiazem 120 mg daily. 3. Colace 100 mg twice daily. 4. Proscar 5 mg daily. 5. Metoprolol 50 mg daily. 6. MiraLax 17 grams daily as needed. 7. Flomax 0.4 mg at bedtime. The previously mentioned medications were all new medications. Medications he was taking at home which were continued including Lipitor 10 mg daily, vitamin B12 1000 mcg daily, Eliquis 5 mg twice daily, Advair Diskus twice daily, Folic acid 1 mg daily, magnesium 250 mg daily, omeprazole 20 mg daily. Medications that were discontinued included amlodipine 2.5 mg daily, lisinopril 10 mg daily and Methotrexate 20 mg daily, which was placed on hold. The patient was told that he could shower including his incision with soap and water; however, not take any tub baths. He was told not to drive until cleared to do so by Dr. Hudson and he was instructed that he should walk daily. Because of the patient's urinary retention a voiding trial will be coordinated with urology at [facility] in the office at [address] as his Bah catheter was placed on 01/05/2019. Voiding trial was to be tried 1 week after that and so we will try to arrange an appointment by January 13 or of this year. Concerning follow up Dr. Hudson our office will call him to verify time and date of appointment and we will try to coordinate this with urology as we are located in the same office.
[2019-01-10] MEDS: ATORVASTATIN 10 MG TAB PO SCH (18:23)
[2019-01-10] MEDS: MAGNESIUM OXIDE 400 MG TAB PO SCH (18:23)
[2019-01-10] MEDS: TAMSULOSIN HCL 0.4 MG CAP PO SCH (18:23)
== END 2019-01-10 19:02 | disposition home health service (06) | DRG 163 ==
LOC: ASU 09:29 → 3N 15:08 → 2S 01-02 19:08 → 3W 01-05 13:23 → 3N 01-06 09:34
DX: I48.92 Unspecified atrial flutter; R33.8 Other retention of urine; N40.1 Benign prostatic hyperplasia with lower urinary tract symptoms; Z79.899 Other long term (current) drug therapy; Z79.01 Long term (current) use of anticoagulants; Z87.891 Personal history of nicotine dependence; I48.91 Unspecified atrial fibrillation; Z95.0 Presence of cardiac pacemaker; N17.0 Acute kidney failure with tubular necrosis; C34.11 Malignant neoplasm of upper lobe, right bronchus or lung; J44.9 Chronic obstructive pulmonary disease, unspecified; I95.9 Hypotension, unspecified